=== PATIENT | male | born 1970 | race Caucasian/White ===

== ENCOUNTER 2016-07-02 22:48 | Observation (INO) | payer MEDICARE, MEDICAID ==
[2016-07-03] MEDS ORDERED: MVI, Adult with Vitamin K 10 ML, Thiamine 100 MG, Folic Acid 1 MG, Magnesium Sulfate 3 ... IV SCH ×5 (00:15)
--- NOTE | 2016-07-03 03:20 | EDM.PDOC ---
ED HPI GENERAL MEDICAL PROBLEM - General Chief Complaint: Drug or Alcohol Abuse Stated Complaint: [facility] Time Seen by Provider: 07/03/16 00:01 Source of Information: Reports: EMS, Police History Limitations: Reports: Intoxication - History of Present Illness INITIAL COMMENTS - FREE TEXT/NARRATIVE: History of present illness: [45-year-old male is brought in in a state of deep intoxication. He apparently was in a motel and discovered there and brought in by a law enforcement or ambulance. At one point upon arrival here her upon giving him painful stimulation he arouses and asked if he was in [place]. He's not been here before so we do not have much history on him.] Review of systems: As per history of present illness and below otherwise all systems reviewed and negative. Past medical history: As per history of present illness and as reviewed below otherwise noncontributory. Surgical history: As per history of present illness and as reviewed below otherwise noncontributory. Social history: No reported history of drug or alcohol abuse. Family history: As per history of present illness and as reviewed below otherwise noncontributory. Physical exam: HEENT: Atraumatic, normocephalic, pupils reactive, negative for conjunctival pallor or scleral icterus, mucous membranes moist, throat dry, neck supple, nontender, trachea midline. Lungs: Clear to auscultation, breath sounds equal bilaterally, chest was tender on palpation of the left upper chest Heart: S1S2, regular, negative for clicks, rubs, or JVD. Abdomen: Soft, nondistended, nontender. Negative for masses or hepatosplenomegaly. Negative for costovertebral tenderness. Pelvis: Stable nontender. Genitourinary: Deferred. Rectal: Deferred. Extremities: Atraumatic, negative for cords or calf pain. Neurovascular unremarkable. Neuro: Patient is arousable by voice or painful stimuli but then quickly falls back asleep Diagnostics: [Head CT did not demonstrate any intracranial problems or hematoma blood alcohol level is 271 urine drug screen is negative. CBC and complete metabolic panel were also done see those for details but nothing that required any intervention] Therapeutics: [He was given a banana bag while here.] Impression: [Alcohol intoxication] Plan: [Patient has been here 4 hours and is not arousing we are going to admit him and continue to observe him and expect that he will eventually awake from his intoxicated state but if not then further investigation may need to be undertaken. He will need to be watched for DTs. Angelica is coming to admit him] Definitive disposition and diagnosis as appropriate pending reevaluation and review of above. - Related Data Allergies Allergy/AdvReac Type Severity Reaction Status Date / Time nickel Allergy Rash Verified 07/02/16 23:12 trazodone Allergy Priapism Verified 07/02/16 23:11 Home Meds: Home Meds Acetaminophen 500 mg PO ASDIRECTED 07/02/16 [History] Aspirin [Santos Chewable] 81 mg PO DAILY 07/02/16 [History] Cholecalciferol (Vitamin D3) [Vitamin D3] 1,000 unit PO DAILY 07/02/16 [History] FLUoxetine [PROzac] 20 mg PO DAILY 07/02/16 [History] Insulin Aspart [NovoLOG] 10 unit SQ TIDMEALS 07/02/16 [History] Insulin Glarg,Human.Rec.Analog [LantUS Solostar] 15 unit SUBCUT BEDTIME [History] Lisinopril [Prinivil] 2.5 mg PO DAILY 07/02/16 [History] Multivitamin [One Daily Multivitamin] 1 each PO DAILY 07/02/16 [History] Naproxen Sodium [Aleve] 220 mg PO ASDIRECTED 07/02/16 [History] Zolpidem [Ambien] 10 mg PO BEDTIME PRN 07/02/16 [History] atorvaSTATin Calcium [Atorvastatin Calcium] 20 mg PO BEDTIME 07/02/16 [History] Past Medical History Cardiovascular History: Reports: Other (See Below) Other Cardiovascular History: Valve problems. Gastrointestinal History: Reports: Other (See Below) Other Gastrointestinal History: unknown of history Genitourinary History: Reports: Other (See Below) Other Genitourinary History: unknown of history Musculoskeletal History: Reports: Other (See Below) Other Musculoskeletal History: Unknown history Neurological History: Reports: Other (See Below) Other Neuro History: unknown of history Psychiatric History: Reports: Addiction, Other (See Below) Other Psychiatric History: ETOH Abuse Endocrine/Metabolic History: Reports: Diabetes, Type II, Other (See Below) Other Endocrine/Metabolic History: On insulin Hematologic History: Reports: Other (See Below) Other Hematologic History: unknown of history Immunologic History: Reports: Other (See Below) Other Immunologic History: unknown of history Oncologic (Cancer) History: Reports: Other (See Below) Other Oncologic History: unknown of history Dermatologic History: Reports: Other (See Below) - Infectious Disease History Infectious Disease History: Reports: Chicken Pox - Past Surgical History HEENT Surgical History: Reports: Tonsillectomy Social & Family History - Family History Family Medical History: Unobtainable - Tobacco Use Smoking Status *Q: Current Every Day Smoker Years of Tobacco use: 30 Packs/Tins Daily: 0.5 Second Hand Smoke Exposure: No - Caffeine Use Caffeine Use: Reports: Energy Drinks - Alcohol Use Days Per Week of Alcohol Use: 7 Number of Drinks Per Day: 12 Total Drinks Per Week: 84 - Recreational Drug Use Recreational Drug Use: Yes Recreational Drug Type: Reports: Other (see below) Other Recreational Drug Type: unknown of history ED ROS GENERAL - Review of Systems Review Of Systems: ROS reveals no pertinent complaints other than HPI. - Physical Exam Exam: See Below Course - Vital Signs Last Recorded V/S: Last Vital Signs Temp 37 C 07/03/16 01:05 Pulse 90 07/03/16 01:55 Resp 14 07/03/16 01:55 BP 117/40 L 07/03/16 01:55 Pulse Ox 94 L 07/03/16 01:55 - Orders/Labs/Meds Orders: Active Orders 24 hr Category Date Time Status Chest 1V Frontal [CR] Stat Exams 07/03/16 00:03 Taken Head wo Cont [CT] Stat Exams 07/03/16 00:06 Taken MVI, Adult with Vitamin K [Infuvite Adult] 10 ml Med 07/03/16 00:15 Active Thiamine [Vitamin B-1] 100 mg Folic Acid 1 mg Magnesium Sulfate [Magnesium Sulfate 50%] 3 gm Sodium Chloride 0.9% [Normal Saline] 1,000 ml IV ASDIRECTED Medication Orders Multivitamins/Minerals 10 ml/Thiamine HCl 100 mg/ Folic Acid 1 mg/ Magnesium Sulfate 3 gm/ Sodium Chloride 1,017.2 mls @ 500 mls/hr IV ASDIRECTED STEVEN Last Admin: 07/03/16 00:36 Dose: 500 mls/hr Labs: Laboratory Tests 07/03/16 07/03/16 07/03/16 Range/Units 00:13 00:13 00:22 WBC 6.5 (4.5-11.0) K/uL RBC 4.25 L (4.30-5.90) M/uL Hgb 13.4 (12.0-15.0) g/dL Hct 38.4 L (40.0-54.0) % MCV 90 (80-98) fL MCH 32 H (27-31) pg MCHC 35 (32-36) % Plt Count 210 (150-400) K/uL Neut % (Auto) 46 (36-66) % Lymph % (Auto) 39 (24-44) % [place] % (Auto) 9 H (2-6) % Eos % (Auto) 4 (2-4) % Baso % (Auto) 1 (0-1) % PT (9.5-12.0) sec INR (0.80-1.20) Sodium (140-148) mmol/L Potassium (3.6-5.2) mmol/L Chloride (100-108) mmol/L Carbon Dioxide (21-32) mmol/L Anion Gap (5.0-14.0) mmol/L BUN (7-18) mg/dL Creatinine (0.8-1.3) mg/dL Est Cr Clr Drug Dosing mL/min Estimated GFR (MDRD) (>60) Glucose (74-106) mg/dL Calcium (8.5-10.1) mg/dL Total Bilirubin (0.2-1.0) mg/dL AST (15-37) U/L ALT (12-78) U/L Alkaline Phosphatase (46-116) U/L Creatine Kinase (39-308) U/L Troponin I (0.000-0.056) ng/mL Total Protein (6.4-8.2) g/dL Albumin (3.4-5.0) g/dL Globulin (2.3-3.5) g/dL Albumin/Globulin Ratio (1.2-2.2) Lipase (73-393) U/L Urine Color Yellow Urine Appearance Clear Urine pH 5.0 (4.5-8.0) Ur Specific [place] 1.005 L (1.008-1.030) Urine Protein Negative (NEGATIVE) mg/dL Urine Glucose (UA) 1000 H (NEGATIVE) mg/dL Urine Ketones Negative (NEGATIVE) mg/dL Urine Occult Blood Negative (NEGATIVE) Urine Nitrite Negative (NEGAITVE) Urine Bilirubin Negative (NEGATIVE) Urine Urobilinogen Normal (NORMAL) mg/dL Ur Leukocyte Esterase Negative (NEGATIVE) Urine RBC 0-5 (0-5) Urine WBC 0-5 (0-5) Ur Epithelial Cells Not seen Amorphous Sediment Not seen Urine Bacteria Not seen Urine Mucus Not seen Urine Opiates Screen Negative (NEGATIVE) Ur Oxycodone Screen Negative (NEGATIVE) Urine Methadone Screen Negative (NEGATIVE) Ur Propoxyphene Screen Negative (NEGATIVE) Ur Barbiturates Screen Negative (NEGATIVE) Ur Tricyclics Screen Negative (NEGATIVE) Ur Phencyclidine Scrn Negative (NEGATIVE) Ur Amphetamine Screen Negative (NEGATIVE) U Methamphetamines Scrn Negative (NEGATIVE) Urine MDMA Screen Negative (NEGATIVE) U Benzodiazepines Scrn Negative (NEGATIVE) U Cocaine Metab Screen Negative (NEGATIVE) U Marijuana (THC) Screen Negative (NEGATIVE) Ethyl Alcohol mg/dL 07/03/16 07/03/16 07/03/16 Range/Units 00:22 00:22 00:22 WBC (4.5-11.0) K/uL RBC (4.30-5.90) M/uL Hgb (12.0-15.0) g/dL Hct (40.0-54.0) % MCV (80-98) fL MCH (27-31) pg MCHC (32-36) % Plt Count (150-400) K/uL Neut % (Auto) (36-66) % Lymph % (Auto) (24-44) % [place] % (Auto) (2-6) % Eos % (Auto) (2-4) % Baso % (Auto) (0-1) % PT 10.3 (9.5-12.0) sec INR 0.97 (0.80-1.20) Sodium 142 (140-148) mmol/L Potassium 4.2 (3.6-5.2) mmol/L Chloride 105 (100-108) mmol/L Carbon Dioxide 25 (21-32) mmol/L Anion Gap 11.6 (5.0-14.0) mmol/L BUN 5 L (7-18) mg/dL Creatinine 0.9 (0.8-1.3) mg/dL Est Cr Clr Drug Dosing 98.17 mL/min Estimated GFR (MDRD) > 60 (>60) Glucose 305 H (74-106) mg/dL Calcium 8.2 L (8.5-10.1) mg/dL Total Bilirubin 0.2 (0.2-1.0) mg/dL AST 84 H (15-37) U/L ALT 156 H (12-78) U/L Alkaline Phosphatase 74 (46-116) U/L Creatine Kinase 218 (39-308) U/L Troponin I < 0.017 (0.000-0.056) ng/mL Total Protein 7.5 (6.4-8.2) g/dL Albumin 3.7 (3.4-5.0) g/dL Globulin 3.8 H (2.3-3.5) g/dL Albumin/Globulin Ratio 1.0 L (1.2-2.2) Lipase 106 (73-393) U/L Urine Color Urine Appearance Urine pH (4.5-8.0) Ur Specific [place] (1.008-1.030) Urine Protein (NEGATIVE) mg/dL Urine Glucose (UA) (NEGATIVE) mg/dL Urine Ketones (NEGATIVE) mg/dL Urine Occult Blood (NEGATIVE) Urine Nitrite (NEGAITVE) Urine Bilirubin (NEGATIVE) Urine Urobilinogen (NORMAL) mg/dL Ur Leukocyte Esterase (NEGATIVE) Urine RBC (0-5) Urine WBC (0-5) Ur Epithelial Cells Amorphous Sediment Urine Bacteria Urine Mucus Urine Opiates Screen (NEGATIVE) Ur Oxycodone Screen (NEGATIVE) Urine Methadone Screen (NEGATIVE) Ur Propoxyphene Screen (NEGATIVE) Ur Barbiturates Screen (NEGATIVE) Ur Tricyclics Screen (NEGATIVE) Ur Phencyclidine Scrn (NEGATIVE) Ur Amphetamine Screen (NEGATIVE) U Methamphetamines Scrn (NEGATIVE) Urine MDMA Screen (NEGATIVE) U Benzodiazepines Scrn (NEGATIVE) U Cocaine Metab Screen (NEGATIVE) U Marijuana (THC) Screen (NEGATIVE) Ethyl Alcohol mg/dL 07/03/16 Range/Units 00:22 WBC (4.5-11.0) K/uL RBC (4.30-5.90) M/uL Hgb (12.0-15.0) g/dL Hct (40.0-54.0) % MCV (80-98) fL MCH (27-31) pg MCHC (32-36) % Plt Count (150-400) K/uL Neut % (Auto) (36-66) % Lymph % (Auto) (24-44) % [place] % (Auto) (2-6) % Eos % (Auto) (2-4) % Baso % (Auto) (0-1) % PT (9.5-12.0) sec INR (0.80-1.20) Sodium (140-148) mmol/L Potassium (3.6-5.2) mmol/L Chloride (100-108) mmol/L Carbon Dioxide (21-32) mmol/L Anion Gap (5.0-14.0) mmol/L BUN (7-18) mg/dL Creatinine (0.8-1.3) mg/dL Est Cr Clr Drug Dosing mL/min Estimated GFR (MDRD) (>60) Glucose (74-106) mg/dL Calcium (8.5-10.1) mg/dL Total Bilirubin (0.2-1.0) mg/dL AST (15-37) U/L ALT (12-78) U/L Alkaline Phosphatase (46-116) U/L Creatine Kinase (39-308) U/L Troponin I (0.000-0.056) ng/mL Total Protein (6.4-8.2) g/dL Albumin (3.4-5.0) g/dL Globulin (2.3-3.5) g/dL Albumin/Globulin Ratio (1.2-2.2) Lipase (73-393) U/L Urine Color Urine Appearance Urine pH (4.5-8.0) Ur Specific [place] (1.008-1.030) Urine Protein (NEGATIVE) mg/dL Urine Glucose (UA) (NEGATIVE) mg/dL Urine Ketones (NEGATIVE) mg/dL Urine Occult Blood (NEGATIVE) Urine Nitrite (NEGAITVE) Urine Bilirubin (NEGATIVE) Urine Urobilinogen (NORMAL) mg/dL Ur Leukocyte Esterase (NEGATIVE) Urine RBC (0-5) Urine WBC (0-5) Ur Epithelial Cells Amorphous Sediment Urine Bacteria Urine Mucus Urine Opiates Screen (NEGATIVE) Ur Oxycodone Screen (NEGATIVE) Urine Methadone Screen (NEGATIVE) Ur Propoxyphene Screen (NEGATIVE) Ur Barbiturates Screen (NEGATIVE) Ur Tricyclics Screen (NEGATIVE) Ur Phencyclidine Scrn (NEGATIVE) Ur Amphetamine Screen (NEGATIVE) U Methamphetamines Scrn (NEGATIVE) Urine MDMA Screen (NEGATIVE) U Benzodiazepines Scrn (NEGATIVE) U Cocaine Metab Screen (NEGATIVE) U Marijuana (THC) Screen (NEGATIVE) Ethyl Alcohol 271 mg/dL Meds: Medications Generic Name Dose Route Start Last Admin Trade Name Danilo PRN Reason Stop Dose Admin Multivitamins/Minerals 10 ml/ 1,017.2 mls @ 500 mls/hr 07/03/16 00:15 00:36 Thiamine HCl 100 mg/ Folic IV 500 mls/hr Acid 1 mg/ Magnesium Sulfate 3 ASDIRECTED STEVEN Administration gm/ Sodium Chloride Departure - Departure Time of Disposition: 03:20 Disposition: Admitted As Inpatient 64 Condition: fair Clinical Impression: Alcohol intoxication Qualifiers: Complication of substance-induced condition: uncomplicated Qualified Code(s): F10.920 - Alcohol use, unspecified with intoxication, uncomplicated - Discharge Information Forms: ED Department Discharge - My Orders Last 24 Hours: My Active Orders 07/03/16 00:03 Chest 1V Frontal [CR] Stat 07/03/16 00:06 Head wo Cont [CT] Stat 07/03/16 00:15 MVI, Adult with Vitamin K [Infuvite Adult] 10 ml Thiamine [Vitamin B-1] 100 mg Folic Acid 1 mg Magnesium Sulfate [Magnesium Sulfate 50%] 3 gm Sodium Chloride 0.9% [Normal Saline] 1,000 ml IV ASDIRECTED - Assessment/Plan Last 24 Hours: My Active Orders 07/03/16 00:03 Chest 1V Frontal [CR] Stat 07/03/16 00:06 Head wo Cont [CT] Stat 07/03/16 00:15 MVI, Adult with Vitamin K [Infuvite Adult] 10 ml Thiamine [Vitamin B-1] 100 mg Folic Acid 1 mg Magnesium Sulfate [Magnesium Sulfate 50%] 3 gm Sodium Chloride 0.9% [Normal Saline] 1,000 ml IV ASDIRECTED
--- NOTE | 2016-07-03 03:44 | PCM.HP ---
H&P History of Present Illness - General Date of Service: 07/02/16 Admit Problem/Dx: Admission Diagnosis/Problem Admission Diagnosis/Problem Alcohol intoxication Source of Information: EMS Notes Reviewed, Provider, RN History Limitations: Reports: Altered Mental Status, Intoxication, Uncooperative - History of Present Illness Initial Comments - Free Text/Narative: History of present illness: [45-year-old male is brought in in a state of deep intoxication. He apparently was in a motel and discovered there and brought in by a law enforcement or ambulance. At one point upon arrival here her upon giving him painful stimulation he arouses and asked if he was in [place]. He's not been here before so we do not have much history on him.] Review of systems: As per history of present illness and below otherwise all systems reviewed and negative. Past medical history: As per history of present illness and as reviewed below otherwise noncontributory. Surgical history: As per history of present illness and as reviewed below otherwise noncontributory. Social history: No reported history of drug or alcohol abuse. Family history: As per history of present illness and as reviewed below otherwise noncontributory. Diagnostics: [Head CT did not demonstrate any intracranial problems or hematoma, blood alcohol level is 271 urine drug screen is negative. CBC and complete metabolic panel were also done see those for details but nothing that required any intervention] Therapeutics: [He was given a banana bag while here.] Impression: [Alcohol intoxication] Plan: [Patient has been here 4 hours and is not arousing we are going to admit him and continue to observe him and expect that he will eventually awake from his intoxicated state but if not then further investigation may need to be undertaken. He will need to be watched for DTs. Angelica is coming to admit him] Definitive disposition and diagnosis as appropriate pending reevaluation and review of above. Onset of Symptoms: Reports: Unknown/Unsure Location: Reports: Generalized Improves with: Reports: None Worsens with: Reports: None Associated Symptoms: Reports: No Other Symptoms - Related Data Allergies/Adverse Reactions: Allergies Allergy/AdvReac Type Severity Reaction Status Date / Time nickel Allergy Rash Verified 07/02/16 23:12 trazodone Allergy Priapism Verified 07/02/16 23:11 Home Medications: Home Meds Acetaminophen 500 mg PO ASDIRECTED 07/02/16 [History] Aspirin [Santos Chewable] 81 mg PO DAILY 07/02/16 [History] Cholecalciferol (Vitamin D3) [Vitamin D3] 1,000 unit PO DAILY 07/02/16 [History] FLUoxetine [PROzac] 20 mg PO DAILY 07/02/16 [History] Insulin Aspart [NovoLOG] 10 unit SQ TIDMEALS 07/02/16 [History] Insulin Glarg,Human.Rec.Analog [LantUS Solostar] 15 unit SUBCUT BEDTIME [History] Lisinopril [Prinivil] 2.5 mg PO DAILY 07/02/16 [History] Multivitamin [One Daily Multivitamin] 1 each PO DAILY 07/02/16 [History] Naproxen Sodium [Aleve] 220 mg PO ASDIRECTED 07/02/16 [History] Zolpidem [Ambien] 10 mg PO BEDTIME PRN 07/02/16 [History] atorvaSTATin Calcium [Atorvastatin Calcium] 20 mg PO BEDTIME 07/02/16 [History] Past Medical History Cardiovascular History: Reports: Other (See Below) Other Cardiovascular History: Valve problems. Gastrointestinal History: Reports: Other (See Below) Other Gastrointestinal History: unknown of history Genitourinary History: Reports: Other (See Below) Other Genitourinary History: unknown of history Musculoskeletal History: Reports: Other (See Below) Other Musculoskeletal History: Unknown history Neurological History: Reports: Other (See Below) Other Neuro History: unknown of history Psychiatric History: Reports: Addiction, Other (See Below) Other Psychiatric History: ETOH Abuse Endocrine/Metabolic History: Reports: Diabetes, Type II, Other (See Below) Other Endocrine/Metabolic History: On insulin Hematologic History: Reports: Other (See Below) Other Hematologic History: unknown of history Immunologic History: Reports: Other (See Below) Other Immunologic History: unknown of history Oncologic (Cancer) History: Reports: Other (See Below) Other Oncologic History: unknown of history Dermatologic History: Reports: Other (See Below) - Infectious Disease History Infectious Disease History: Reports: Chicken Pox - Past Surgical History HEENT Surgical History: Reports: Tonsillectomy Social & Family History - Family History Family Medical History: Unobtainable - Tobacco Use Smoking Status *Q: Current Every Day Smoker Years of Tobacco use: 30 Packs/Tins Daily: 0.5 Second Hand Smoke Exposure: No - Caffeine Use Caffeine Use: Reports: Energy Drinks - Alcohol Use Days Per Week of Alcohol Use: 7 Number of Drinks Per Day: 12 Total Drinks Per Week: 84 - Recreational Drug Use Recreational Drug Use: Yes Recreational Drug Type: Reports: Other (see below) Other Recreational Drug Type: unknown of history H&P Review of Systems - Review of Systems: Review Of Systems: Unable To Obtain General: Reports: ROS unobtainable Exam - Exam Exam: See Below - Vital Signs Vital Signs: Last Vital Signs Temp 37 C 07/03/16 01:05 Pulse 90 07/03/16 01:55 Resp 14 07/03/16 01:55 BP 117/40 L 07/03/16 01:55 Pulse Ox 94 L 07/03/16 01:55 Weight: 79.379 kg - Exam General: Other (awakes to name, startled look, then fall back to sleep) HEENT: Mucosa Moist & [place], Nares Patent, Pupils Equal Neck: Supple, Trachea Midline Lungs: Clear to Auscultation, Normal Respiratory Effort Cardiovascular: Regular Rate, Regular Rhythm, Normal S1, Normal S2 Abdomen: Normal Bowel Sounds, Soft, Other (non tender to palpation) (Male) Exam: Deferred Rectal (Males) Exam: Deferred Back Exam: Normal Inspection Extremities: Normal Inspection Peripheral Pulses: 2+: Brachial (L), Brachial (R), Dorsalis Pedis (L), Dorsalis Pedis (R) Skin: Warm, Dry, Intact Neurological: Strength Equal Bilateral Psychiatric: Other (unable to assess due to effects of alcohol.) - Patient Data Lab Results last 24 hrs: Laboratory Results - last 24 hr 07/03/16 07/03/16 07/03/16 Range/Units 00:13 00:13 00:22 WBC 6.5 (4.5-11.0) K/uL RBC 4.25 L (4.30-5.90) M/uL Hgb 13.4 (12.0-15.0) g/dL Hct 38.4 L (40.0-54.0) % MCV 90 (80-98) fL MCH 32 H (27-31) pg MCHC 35 (32-36) % Plt Count 210 (150-400) K/uL Neut % (Auto) 46 (36-66) % Lymph % (Auto) 39 (24-44) % Mercer % (Auto) 9 H (2-6) % Eos % (Auto) 4 (2-4) % Baso % (Auto) 1 (0-1) % PT (9.5-12.0) sec INR (0.80-1.20) Sodium (140-148) mmol/L Potassium (3.6-5.2) mmol/L Chloride (100-108) mmol/L Carbon Dioxide (21-32) mmol/L Anion Gap (5.0-14.0) mmol/L BUN (7-18) mg/dL Creatinine (0.8-1.3) mg/dL Est Cr Clr Drug Dosing mL/min Estimated GFR (MDRD) (>60) Glucose (74-106) mg/dL Calcium (8.5-10.1) mg/dL Total Bilirubin (0.2-1.0) mg/dL AST (15-37) U/L ALT (12-78) U/L Alkaline Phosphatase (46-116) U/L Creatine Kinase (39-308) U/L Troponin I (0.000-0.056) ng/mL Total Protein (6.4-8.2) g/dL Albumin (3.4-5.0) g/dL Globulin (2.3-3.5) g/dL Albumin/Globulin Ratio (1.2-2.2) Lipase (73-393) U/L Urine Color Yellow Urine Appearance Clear Urine pH 5.0 (4.5-8.0) Ur Specific [place] 1.005 L (1.008-1.030) Urine Protein Negative (NEGATIVE) mg/dL Urine Glucose (UA) 1000 H (NEGATIVE) mg/dL Urine Ketones Negative (NEGATIVE) mg/dL Urine Occult Blood Negative (NEGATIVE) Urine Nitrite Negative (NEGAITVE) Urine Bilirubin Negative (NEGATIVE) Urine Urobilinogen Normal (NORMAL) mg/dL Ur Leukocyte Esterase Negative (NEGATIVE) Urine RBC 0-5 (0-5) Urine WBC 0-5 (0-5) Ur Epithelial Cells Not seen Amorphous Sediment Not seen Urine Bacteria Not seen Urine Mucus Not seen Urine Opiates Screen Negative (NEGATIVE) Ur Oxycodone Screen Negative (NEGATIVE) Urine Methadone Screen Negative (NEGATIVE) Ur Propoxyphene Screen Negative (NEGATIVE) Ur Barbiturates Screen Negative (NEGATIVE) Ur Tricyclics Screen Negative (NEGATIVE) Ur Phencyclidine Scrn Negative (NEGATIVE) Ur Amphetamine Screen Negative (NEGATIVE) U Methamphetamines Scrn Negative (NEGATIVE) Urine MDMA Screen Negative (NEGATIVE) U Benzodiazepines Scrn Negative (NEGATIVE) U Cocaine Metab Screen Negative (NEGATIVE) U Marijuana (THC) Screen Negative (NEGATIVE) Ethyl Alcohol mg/dL 07/03/16 07/03/16 07/03/16 Range/Units 00:22 00:22 00:22 WBC (4.5-11.0) K/uL RBC (4.30-5.90) M/uL Hgb (12.0-15.0) g/dL Hct (40.0-54.0) % MCV (80-98) fL MCH (27-31) pg MCHC (32-36) % Plt Count (150-400) K/uL Neut % (Auto) (36-66) % Lymph % (Auto) (24-44) % Mercer % (Auto) (2-6) % Eos % (Auto) (2-4) % Baso % (Auto) (0-1) % PT 10.3 (9.5-12.0) sec INR 0.97 (0.80-1.20) Sodium 142 (140-148) mmol/L Potassium 4.2 (3.6-5.2) mmol/L Chloride 105 (100-108) mmol/L Carbon Dioxide 25 (21-32) mmol/L Anion Gap 11.6 (5.0-14.0) mmol/L BUN 5 L (7-18) mg/dL Creatinine 0.9 (0.8-1.3) mg/dL Est Cr Clr Drug Dosing 98.17 mL/min Estimated GFR (MDRD) > 60 (>60) Glucose 305 H (74-106) mg/dL Calcium 8.2 L (8.5-10.1) mg/dL Total Bilirubin 0.2 (0.2-1.0) mg/dL AST 84 H (15-37) U/L ALT 156 H (12-78) U/L Alkaline Phosphatase 74 (46-116) U/L Creatine Kinase 218 (39-308) U/L Troponin I < 0.017 (0.000-0.056) ng/mL Total Protein 7.5 (6.4-8.2) g/dL Albumin 3.7 (3.4-5.0) g/dL Globulin 3.8 H (2.3-3.5) g/dL Albumin/Globulin Ratio 1.0 L (1.2-2.2) Lipase 106 (73-393) U/L Urine Color Urine Appearance Urine pH (4.5-8.0) Ur Specific [place] (1.008-1.030) Urine Protein (NEGATIVE) mg/dL Urine Glucose (UA) (NEGATIVE) mg/dL Urine Ketones (NEGATIVE) mg/dL Urine Occult Blood (NEGATIVE) Urine Nitrite (NEGAITVE) Urine Bilirubin (NEGATIVE) Urine Urobilinogen (NORMAL) mg/dL Ur Leukocyte Esterase (NEGATIVE) Urine RBC (0-5) Urine WBC (0-5) Ur Epithelial Cells Amorphous Sediment Urine Bacteria Urine Mucus Urine Opiates Screen (NEGATIVE) Ur Oxycodone Screen (NEGATIVE) Urine Methadone Screen (NEGATIVE) Ur Propoxyphene Screen (NEGATIVE) Ur Barbiturates Screen (NEGATIVE) Ur Tricyclics Screen (NEGATIVE) Ur Phencyclidine Scrn (NEGATIVE) Ur Amphetamine Screen (NEGATIVE) U Methamphetamines Scrn (NEGATIVE) Urine MDMA Screen (NEGATIVE) U Benzodiazepines Scrn (NEGATIVE) U Cocaine Metab Screen (NEGATIVE) U Marijuana (THC) Screen (NEGATIVE) Ethyl Alcohol mg/dL 07/03/16 Range/Units 00:22 WBC (4.5-11.0) K/uL RBC (4.30-5.90) M/uL Hgb (12.0-15.0) g/dL Hct (40.0-54.0) % MCV (80-98) fL MCH (27-31) pg MCHC (32-36) % Plt Count (150-400) K/uL Neut % (Auto) (36-66) % Lymph % (Auto) (24-44) % Mercer % (Auto) (2-6) % Eos % (Auto) (2-4) % Baso % (Auto) (0-1) % PT (9.5-12.0) sec INR (0.80-1.20) Sodium (140-148) mmol/L Potassium (3.6-5.2) mmol/L Chloride (100-108) mmol/L Carbon Dioxide (21-32) mmol/L Anion Gap (5.0-14.0) mmol/L BUN (7-18) mg/dL Creatinine (0.8-1.3) mg/dL Est Cr Clr Drug Dosing mL/min Estimated GFR (MDRD) (>60) Glucose (74-106) mg/dL Calcium (8.5-10.1) mg/dL Total Bilirubin (0.2-1.0) mg/dL AST (15-37) U/L ALT (12-78) U/L Alkaline Phosphatase (46-116) U/L Creatine Kinase (39-308) U/L Troponin I (0.000-0.056) ng/mL Total Protein (6.4-8.2) g/dL Albumin (3.4-5.0) g/dL Globulin (2.3-3.5) g/dL Albumin/Globulin Ratio (1.2-2.2) Lipase (73-393) U/L Urine Color Urine Appearance Urine pH (4.5-8.0) Ur Specific [place] (1.008-1.030) Urine Protein (NEGATIVE) mg/dL Urine Glucose (UA) (NEGATIVE) mg/dL Urine Ketones (NEGATIVE) mg/dL Urine Occult Blood (NEGATIVE) Urine Nitrite (NEGAITVE) Urine Bilirubin (NEGATIVE) Urine Urobilinogen (NORMAL) mg/dL Ur Leukocyte Esterase (NEGATIVE) Urine RBC (0-5) Urine WBC (0-5) Ur Epithelial Cells Amorphous Sediment Urine Bacteria Urine Mucus Urine Opiates Screen (NEGATIVE) Ur Oxycodone Screen (NEGATIVE) Urine Methadone Screen (NEGATIVE) Ur Propoxyphene Screen (NEGATIVE) Ur Barbiturates Screen (NEGATIVE) Ur Tricyclics Screen (NEGATIVE) Ur Phencyclidine Scrn (NEGATIVE) Ur Amphetamine Screen (NEGATIVE) U Methamphetamines Scrn (NEGATIVE) Urine MDMA Screen (NEGATIVE) U Benzodiazepines Scrn (NEGATIVE) U Cocaine Metab Screen (NEGATIVE) U Marijuana (THC) Screen (NEGATIVE) Ethyl Alcohol 271 mg/dL Result Diagrams: 07/03/16 00:22 07/03/16 00:22 *Q Meaningful Use (ADM) - VTE *Q VTE Criteria *Q: - Stroke *Q Stroke Criteria *Q: - AMI *Q AMI Criteria *Q: - Problem List (1) Diabetes type 2, uncontrolled SNOMED Code(s): 25453469, 050872693 ICD Code: E11.65 - TYPE 2 DIABETES MELLITUS WITH HYPERGLYCEMIA Status: Acute Priority: High Current Visit: Yes Qualifiers: Diabetes mellitus complication status: with hyperglycemia Diabetes mellitus long-term insulin use: unspecified long-term insulin use status Qualified Code(s): E11.65 - Type 2 diabetes mellitus with hyperglycemia (2) Alcohol intoxication SNOMED Code(s): 26758643 ICD Code: F10.929 - ALCOHOL USE, UNSPECIFIED WITH INTOXICATION, UNSPECIFIED Status: Acute Priority: High Current Visit: Yes Qualifiers: Complication of substance-induced condition: uncomplicated Qualified Code(s ): F10.920 - Alcohol use, unspecified with intoxication, uncomplicated Problem List Initiated/Reviewed/Updated: Yes Orders Last 24hrs: Active Orders 24 hr Category Date Time Status Patient Status Manage Transfer [TRANSFER] Routine ADT 07/03/16 03:28 Ordered Cardiac Monitoring [RC] .As Directed Care 07/03/16 03:28 Ordered Chest 1V Frontal [CR] Stat Exams 07/03/16 00:03 Taken Head wo Cont [CT] Stat Exams 07/03/16 00:06 Taken MVI, Adult with Vitamin K [Infuvite Adult] 10 ml Med 07/03/16 00:15 Active Thiamine [Vitamin B-1] 100 mg Folic Acid 1 mg Magnesium Sulfate [Magnesium Sulfate 50%] 3 gm Sodium Chloride 0.9% [Normal Saline] 1,000 ml IV ASDIRECTED Resuscitation Status Routine Resus Stat 07/03/16 03:32 Ordered Medication Orders Multivitamins/Minerals 10 ml/Thiamine HCl 100 mg/ Folic Acid 1 mg/ Magnesium Sulfate 3 gm/ Sodium Chloride 1,017.2 mls @ 500 mls/hr IV ASDIRECTED STEVEN Last Admin: 07/03/16 00:36 Dose: 500 mls/hr Assessment/Plan Comment:: ASSESSMENT / PLAN History of present illness: [45-year-old male is brought in in a state of deep intoxication. He apparently was in a motel and discovered there and brought in by a law enforcement or ambulance. At one point upon arrival here her upon giving him painful stimulation he arouses and asked if he was in [place]. He's not been here before so we do not have much history on him.niesha: [Patient has been in ER for 4 hours and is not arousing we are going to admit him and continue to observe him and expect that he will eventually awake from his intoxicated state but if not then further investigation may need to be undertaken. He will need to be watched for DTs. ] Plan alcohol intoxication -Admit to ICU Med Overflow for further monitoring -Telemetry -Oxygen per nasal cannula prn -IV fluids for rehydration NS at 125 mL per hour -Advise to notify nurses of any chest pain or other symptoms -Order for a CIWAA protocol -And a.m. labs: CBC, BMP Diabetes type 2 -Lantus -low dose sliding scale coverage Maintenance issues -Orders home meds: -Nutrition: Regular diet -Felder catheter not indicated at this time -DVT: ambulate -GI Prophalaxis; Protonix 40mg daily CODE STATUS: Full Admission status: Admit to Observation -I expect this patient to stay less than 24 hours, not to exceed 96 hours for evaluation and management of this problem. Disposition; home , may need to consider [facility] Primary care provider: unknown
[2016-07-03] MEDS ORDERED: Pantoprazole 40 MG Vial IVPUSH SCH ×2 (04:37→17:00)
[2016-07-03] MEDS ORDERED: oxyCODONE 5 MG Tab PO PRN (04:37)
[2016-07-03] MEDS ORDERED: LORazepam 2 MG/ML MDV IV PRN (04:37)
[2016-07-03] MEDS ORDERED: Docusate Sodium 100 MG Cap PO PRN (04:37)
[2016-07-03] MEDS ORDERED: Insulin Aspart 100 Units/ML 3 ML Pen SUBCUT SCH ×2 (04:37→08:00)
[2016-07-03] MEDS ORDERED: Albuterol 0.083% 2.5 MG/3 ML Neb Soln NEB PRN (04:37)
[2016-07-03] MEDS ORDERED: Sodium Chloride 0.9% 1,000 ML IV SCH (04:37)
[2016-07-03] MEDS ORDERED: Acetaminophen 325 MG Tab PO PRN (04:37)
[2016-07-03] MEDS ORDERED: Zolpidem 5 MG Tab PO PRN (04:37)
[2016-07-03] MEDS ORDERED: Ondansetron 4 MG Tab.DIS PO PRN (04:37)
[2016-07-03 08:38] VITALS: BP 123/89
--- NOTE | 2016-07-03 08:41 | CR ---
Chest 1V Frontal HISTORY: left chest pain COMPARISON: None FINDINGS: Portable chest, 0029 hours. Lungs appear clear and normally aerated. Cardiomediastinal silhouette is within normal limits. No va scular redistribution or pleural fluid can be seen. Bony structures and soft tissues are unremarkabl e. IMPRESSION: No acute chest abnormality identified.
[2016-07-03] MEDS ORDERED: FLUoxetine 20 MG Cap PO SCH (09:00)
[2016-07-03] MEDS ORDERED: Lisinopril 2.5 MG Tab PO SCH (09:00)
--- NOTE | 2016-07-03 09:36 | PCM.DCSUM1 ---
Discharge Summary - Hospital Course Brief History: This patient is a 45-year-old gentleman who was brought into the emergency department by law-enforcement because of agitation related to alcohol intoxication and drug use. - Discharge Data Discharge Date: 07/03/16 Discharge Disposition: Home, Self-Care 01 Condition: Fair - Discharge Diagnosis/Problem(s) (1) Agitation SNOMED Code(s): 85537672 ICD Code: R45.1 - RESTLESSNESS AND AGITATION Status: Acute Current Visit : Yes (2) Alcohol intoxication SNOMED Code(s): 78603211 ICD Code: F10.929 - ALCOHOL USE, UNSPECIFIED WITH INTOXICATION, UNSPECIFIED Status: Acute Priority: High Current Visit: Yes Qualifiers: Complication of substance-induced condition: uncomplicated Qualified Code(s ): F10.920 - Alcohol use, unspecified with intoxication, uncomplicated (3) Diabetes type 2, uncontrolled SNOMED Code(s): 04631599, 792811301 ICD Code: E11.65 - TYPE 2 DIABETES MELLITUS WITH HYPERGLYCEMIA Status: Acute Priority: High Current Visit: Yes Qualifiers: Diabetes mellitus complication status: with hyperglycemia 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 He became very agitated and was brought into the emergency department by law-enforcement for further evaluation and management. His alcohol level was 271 urine drug screen was otherwise negative. He was given IV fluids and admitted to the intensive care unit for further observation and management. Glucose level was noted to be significantly elevated 300 he does have a history of poorly controlled type 2 diabetes mellitus. On the morning of discharge he was alert and oriented. He is planning on continuing sobriety and does have alcohol assessment pending within the next week. He has been through treatment many times in the past but is interested in pursuing further treatment and followup in . Activity will be as tolerated and he will resume his usual diet. Followup appointment will be scheduled with his primary care provider within one week. - Patient Instructions Diet: Diabetic Diet Activity: As Tolerated Other/Special Instructions: Schedule followup appointment with primary care provider within one week - Discharge Plan Home Medications: Home Meds Acetaminophen 500 mg PO ASDIRECTED 07/02/16 [History] Aspirin [Santos Chewable Aspirin] 81 mg PO DAILY 07/02/16 [History] Cholecalciferol (Vitamin D3) [Vitamin D3] 1,000 unit PO DAILY 07/02/16 [History] FLUoxetine [PROzac] 20 mg PO DAILY 07/02/16 [History] Insulin Aspart [NovoLOG] 10 unit SQ TIDMEALS 07/02/16 [History] Insulin Glarg,Human.Rec.Analog [Lantus Solostar] 15 unit SUBCUT BEDTIME [History] Lisinopril [Prinivil] 2.5 mg PO DAILY 07/02/16 [History] Multivitamin [One Daily Multivitamin] 1 each PO DAILY 07/02/16 [History] Naproxen Sodium [Aleve] 220 mg PO ASDIRECTED 07/02/16 [History] Zolpidem [Ambien] 10 mg PO BEDTIME PRN 07/02/16 [History] atorvaSTATin Calcium [Atorvastatin Calcium] 20 mg PO BEDTIME 07/02/16 [History] Referrals: PCP,None [Primary Care Provider] - - Patient Data Vitals - Most Recent: Last Vital Signs Temp 98.9 F 07/03/16 08:33 Pulse 88 07/03/16 08:33 Resp 20 07/03/16 08:33 BP 123/89 07/03/16 08:33 Pulse Ox 98 07/03/16 08:33 Weight - Most Recent: 175 lb Med Orders - Current: Current Medications Acetaminophen (Tylenol) 650 mg PO Q4H PRN PRN Reason: Pain (Mild 1-3)/fever Albuterol (Proventil Neb Soln) 2.5 mg NEB Q4H PRN PRN Reason: Shortness Of Breath/wheezing Docusate Sodium (Colace) 100 mg PO BID PRN PRN Reason: Constipation Fluoxetine HCl (Prozac) 20 mg PO DAILY STEVEN Sodium Chloride (Normal Saline) 1,000 mls @ 125 mls/hr IV ASDIRECTED STEVEN Insulin Aspart (Novolog) 0 unit SUBCUT ASDIRECTED STEVEN PRN Reason: Protocol Insulin Aspart (Novolog) 10 unit SUBCUT TIDMEALS STEVEN Insulin Detemir (Levemir) 15 unit SUBCUT BEDTIME STEVEN Lisinopril (Prinivil) 2.5 mg PO DAILY STEVEN Lorazepam (Ativan) 1 mg IV Q6H PRN PRN Reason: Nausea/Vomiting Last Admin: 07/03/16 05:09 Dose: 1 mg Ondansetron HCl (Zofran Odt) 4 mg PO Q6H PRN PRN Reason: Nausea able to take PO Oxycodone HCl (Oxycodone) 5 mg PO Q4H PRN PRN Reason: Pain (moderate 4-6) Pantoprazole Sodium (Protonix Iv) 40 mg IVPUSH Q12H [facility] Zolpidem Tartrate (Ambien) 5 mg PO BEDTIME PRN PRN Reason: Sleep Discontinued Medications Multivitamins/Minerals 10 ml/Thiamine HCl 100 mg/ Folic Acid 1 mg/ Magnesium Sulfate 3 gm/ Sodium Chloride 1,017.2 mls @ 500 mls/hr IV ASDIRECTED [facility] Last Admin: 07/03/16 00:36 Dose: 500 mls/hr Pantoprazole Sodium (Protonix Iv) 40 mg IVPUSH Q12H [facility] Last Admin: 07/03/16 05:09 Dose: 40 mg *Q Meaningful Use (DIS) - VTE *Q VTE Criteria *Q: - Stroke *Q Stroke Criteria *Q: - AMI *Q AMI Criteria *Q:
[2016-07-03] MEDS ORDERED: Insulin Detemir 100 Units/ML 3 ML Pen SUBCUT SCH (21:00)
== END 2016-07-03 10:03 | disposition home or self-care (01) ==
LOC: JP.ED 22:48 → JP.ICU 07-03 03:28
PROVIDERS: ADMIT Hospitalist; ATTEND Hospitalist
DX: R45.1 Restlessness and agitation (principal); F10.920 Alcohol use, unspecified with intoxication, uncomplicated; E11.65 Type 2 diabetes mellitus with hyperglycemia; Z79.82 Long term (current) use of aspirin; Z79.4 Long term (current) use of insulin; Z79.899 Other long term (current) drug therapy; Z88.8 Allergy status to other drugs, medicaments and biological substances; Z91.09 Other allergy status, other than to drugs and biological substances; Z98.890 Other specified postprocedural states; F17.210 Nicotine dependence, cigarettes, uncomplicated
CPT/HCPCS: 36415; 70450; 71010; 80053; 80305; 81001; 82550; 82962; 83690; 84484; 85025; 85610; 96365; 96366; 99285; A9270; C9113; G0480; J2060; J3411; J3475; J7040; 96375; 99219; 99284; G0378; J3490

== ENCOUNTER 2018-03-13 07:47 | Emergency (ER) | payer MEDICARE, MEDICAID ==
[2018-03-13 07:50] VITALS: BP 126/72
[2018-03-13] MEDS ORDERED: LORazepam 2 MG/ML SDV IM ONE (08:41)
--- NOTE | 2018-03-13 12:31 | EDM.PDOCBH ---
ED HPI GENERAL MEDICAL PROBLEM - General Chief Complaint: Drug or Alcohol Abuse Stated Complaint: MEDICAL [facility]IA [facility] Time Seen by Provider: 03/13/18 08:26 Source of Information: Reports: Patient, EMS History Limitations: Reports: No Limitations - History of Present Illness INITIAL COMMENTS - FREE TEXT/NARRATIVE: This man arrived by EMS with some peculiar complaints. He said he ran out of test strips and he said to the EMS something about overdosing on gabapentin drinking bleach and homemade alcohol and that type of thing he told me that he thinks he either has cabin fever or problems with his diabetes. He makes his own homemade wine he said from moldy fruit he said he eats okay but it's mostly carbohydrates. He get somebody to bring him food from the food shelf one of his neighbors. He said previously had been treated with a lot of psych meds such as Haldol. He lives in a [place] the [facility]. He says he's had a lot of losses lately such as his mom and so forth he spoke of his 'expediated existential plight". He denied trying to hurt himself however. He said he needs 2 mg of Ativan right now just so he can urinate. He said he needs glucose Test strips also. He is out of food he does take insulin-dependent he had some this morning he said just prior to calling 911 this morning had Lantus and NovoLog. He said he's leaving for [place] in about 4 days he's going to take a bus. He said he checks his glucose 10-15 times per day. He denies any homicidal or suicidal ideation - Related Data Allergies Allergy/AdvReac Type Severity Reaction Status Date / Time nickel Allergy Rash Verified 03/13/18 07:50 trazodone Allergy Priapism Verified 03/13/18 07:50 Home Meds: Home Meds Acetaminophen 500 mg PO ASDIRECTED 07/02/16 [History] Aspirin [Santos Chewable Aspirin] 81 mg PO DAILY 07/02/16 [History] Cholecalciferol (Vitamin D3) [Vitamin D3] 1,000 unit PO DAILY 07/02/16 [History] FLUoxetine [PROzac] 40 mg PO DAILY 07/02/16 [History] Insulin Aspart [NovoLOG] 6 unit SQ TIDMEALS 07/02/16 [History] Insulin Glarg,Human.Rec.Analog [Lantus Solostar] 20 unit SUBCUT Q12H 07/02/16 [ History] Multivitamin [One Daily Multivitamin] 1 each PO DAILY 07/02/16 [History] atorvaSTATin Calcium [Atorvastatin Calcium] 20 mg PO BEDTIME 07/02/16 [History] Diltiazem [Cardizem] 120 mg PO TID 03/13/18 [History] Gabapentin [Neurontin] 200 mg PO BID 03/13/18 [History] Lidocaine 4% [Xylocaine 4% Top Soln] 1 applic TOP Q12H 03/13/18 [History] hydrOXYzine pamoate [Hydroxyzine Pamoate] 50 mg PO BID PRN 03/13/18 [History] Past Medical History Cardiovascular History: Reports: Other (See Below) Other Cardiovascular History: Valve problems. Gastrointestinal History: Reports: Other (See Below) Other Gastrointestinal History: unknown of history Genitourinary History: Reports: Other (See Below) Other Genitourinary History: unknown of history Musculoskeletal History: Reports: Other (See Below) Other Musculoskeletal History: Unknown history Neurological History: Reports: Other (See Below) Other Neuro History: unknown of history Psychiatric History: Reports: Addiction, Other (See Below) Other Psychiatric History: ETOH Abuse Endocrine/Metabolic History: Reports: Diabetes, Type II, Other (See Below) Other Endocrine/Metabolic History: On insulin Hematologic History: Reports: Other (See Below) Other Hematologic History: unknown of history Immunologic History: Reports: Other (See Below) Other Immunologic History: unknown of history Oncologic (Cancer) History: Reports: Other (See Below) Other Oncologic History: unknown of history Dermatologic History: Reports: Other (See Below) - Infectious Disease History Infectious Disease History: Reports: Chicken Pox - Past Surgical History HEENT Surgical History: Reports: Tonsillectomy Social & Family History - Family History Family Medical History: Unobtainable - Tobacco Use Smoking Status *Q: Current Every Day Smoker Years of Tobacco use: 30 Packs/Tins Daily: 2 - Caffeine Use Caffeine Use: Reports: Energy Drinks ED ROS GENERAL - Review of Systems Review Of Systems: See Below Constitutional: Reports: No Symptoms HEENT: Reports: No Symptoms Respiratory: Reports: No Symptoms Cardiovascular: Reports: No Symptoms Endocrine: Reports: High Glucose GI/Abdominal: Reports: No Symptoms : Reports: No Symptoms Musculoskeletal: Reports: No Symptoms Skin: Reports: No Symptoms Neurological: Reports: No Symptoms Psychiatric: Reports: Anxiety Hematologic/Lymphatic: Reports: No Symptoms ED EXAM, BEHAVIORAL HEALTH - Physical Exam Exam: See Below Exam Limited By: No Limitations General Appearance: Alert (And this morning), No Apparent Distress Eye Exam: Bilateral Eye: Normal Inspection Ears: Normal External Exam Nose: Normal Inspection Throat/Mouth: Normal Inspection, Normal Oropharynx Head: Atraumatic Neck: Normal Inspection Respiratory/Chest: Lungs Clear Cardiovascular: Regular Rate, Rhythm, No Murmur GI/Abdominal: Non-Tender Extremities: Normal Inspection Neurological: Alert, Normal Mood/Affect, CN II-XII Intact, Normal Gait, Normal Reflexes, No Motor/Sensory Deficits Psychiatric: Alert, Normal Affect, Normal Mood, Oriented, Other (He gives a pretty expansive story this difficult to follow. I don't note any clearly neurotic or psychotic signs. Definitely is not suicidal or homicidal. A little bit anxious.) Skin Exam: Warm, Dry COURSE, BEHAVIORAL HEALTH COMP - Course Vital Signs: Last Vital Signs Temp 35.2 C 03/13/18 08:01 Pulse 91 03/13/18 08:01 Resp 13 03/13/18 08:01 BP 126/72 03/13/18 08:01 Pulse Ox 96 03/13/18 08:01 Orders, Labs, Meds: Active Orders 24 hr Category Date Time Status UA W/MICROSCOPIC [URIN] Urgent Lab 03/13/18 08:42 Ordered Laboratory Tests 03/13/18 03/13/18 03/13/18 Range/Units 08:42 08:42 08:43 WBC 8.7 (4.5-11.0) K/uL RBC 4.59 (4.30-5.90) M/uL Hgb 14.4 (12.0-15.0) g/dL Hct 41.1 (40.0-54.0) % MCV 90 (80-98) fL MCH 31 (27-31) pg MCHC 35 (32-36) % Plt Count 271 (150-400) K/uL Neut % (Auto) 60 (36-66) % Lymph % (Auto) 28 (24-44) % [place] % (Auto) 11 H (2-6) % Eos % (Auto) 1 L (2-4) % Baso % (Auto) 1 (0-1) % Sodium 142 (140-148) mmol/L Potassium 4.0 (3.6-5.2) mmol/L Chloride 105 (100-108) mmol/L Carbon Dioxide 24 (21-32) mmol/L Anion Gap 13.2 (5.0-14.0) mmol/L BUN 8 D (7-18) mg/dL Creatinine 1.1 (0.8-1.3) mg/dL Est Cr Clr Drug Dosing 78.59 mL/min Estimated GFR (MDRD) > 60 (>60) Glucose 96 (74-106) mg/dL Calcium 8.5 (8.5-10.1) mg/dL Total Bilirubin 0.3 (0.2-1.0) mg/dL AST 19 D (15-37) U/L ALT 43 (12-78) U/L Alkaline Phosphatase 87 (46-116) U/L Total Protein 7.9 (6.4-8.2) g/dL Albumin 3.9 (3.4-5.0) g/dL Globulin 4.0 H (2.3-3.5) g/dL Albumin/Globulin Ratio 1.0 L (1.2-2.2) Ketones Negative (NEGATIVE) Medications Discontinued Medications Generic Name Dose Route Start Last Admin Trade Name Freq PRN Reason Stop Dose Admin Lorazepam 2 mg 03/13/18 08:41 03/13/18 08:54 Ativan IM 03/13/18 08:42 2 mg ONETIME ONE Administration Re-Assessment/Re-Exam: I did give this man 2 mg of Ativan IM. He said 1 mg 1 work. He became pretty sleepy after that however but he did go ahead and eat a good breakfast. I've explained to him that we don't have any test strips we can give him and he definitely doesn't need to check his blood sugar 10 or 15 times a day. Departure - Departure Time of Disposition: 12:43 Disposition: Home, Self-Care 01 Condition: Fair Clinical Impression: Anxiety about health, Diabetes mellitus - Discharge Information Referrals: PCP,None [Primary Care Provider] - Additional Instructions: Continue all of your usual medications. Get new test strips when they are available. You don't need to check your blood sugar more than 3 or 4 times per day. If it stable just twice a day should be just fine. - My Orders Last 24 Hours: My Active Orders 03/13/18 08:42 UA W/MICROSCOPIC [URIN] Urgent - Assessment/Plan Last 24 Hours: My Active Orders 03/13/18 08:42 UA W/MICROSCOPIC [URIN] Urgent
== END 2018-03-13 13:28 | disposition home or self-care (01) ==
LOC: JP.ED 07:47
DX: F41.9 Anxiety disorder, unspecified (principal); E11.9 Type 2 diabetes mellitus without complications; F17.210 Nicotine dependence, cigarettes, uncomplicated; Z79.4 Long term (current) use of insulin; Z79.82 Long term (current) use of aspirin; Z79.899 Other long term (current) drug therapy; Z98.890 Other specified postprocedural states; Z88.8 Allergy status to other drugs, medicaments and biological substances
CPT/HCPCS: 36415; 80053; 82009; 85025; 96372; 99284; J2060; 99283

== ENCOUNTER 2018-12-15 07:40 | Day surgery (SDC) | payer MEDICARE, MEDICAID ==
[~2018-12-15 07:40] MED LIST: Sodium Chloride 0.9% 1,000 ML IV SCH
[2018-12-15] MEDS ORDERED: fentaNYL 100 MCG/2 ML SDV ONE (08:44)
[2018-12-15] MEDS ORDERED: Midazolam 1 MG/ML 2 ML SDV ONE (08:44)
[2018-12-15] MEDS ORDERED: Propofol 200 MG/20 ML SDV ONE ×2 (08:44→09:07)
[2018-12-15] MEDS ORDERED: 50% Dextrose in Water 50 ML Syringe IVPUSH ONE (09:32)
[2018-12-15 10:31] VITALS: BP 136/94; PULSE 55
--- NOTE | 2018-12-15 11:54 | OR ---
DATE OF PROCEDURE: 12/15/2018 SURGEON: Lewis Ho MD PROCEDURE: Colonoscopy. FINDINGS: 1. Transverse colon polyp, approximately 8 mm, completely removed using hot snare biopsy. 2. Diverticulosis, mild. 3. Very poor colon prep. COMPLICATION: None. READING AIDE: None. ANESTHESIA: MAC. PREPROCEDURE DIAGNOSIS: Family history of colorectal cancer. POSTOPERATIVE DIAGNOSIS: Family history of colorectal cancer. RISKS: Risks, benefits, alternatives, and limitations including, but not limited to infection, bleeding, and perforation were explained to the patient, and they wished to proceed. PROCEDURE IN DETAIL: The patient was placed in left lateral decubitus position. A digital rectal exam was performed without abnormality. The scope was introduced and advanced atraumatically to the ileocecal valve. In the transverse colon, the aforementioned polyp was identified and completely removed using hot snare. The prep would be described as very poor with large amounts of solid and liquid stools remaining. Approximately 50% luminal surface could be seen. Diverticulosis would be described as mild and limited to sigmoid colon. There were no abnormalities on retroflexion. The patient tolerated the procedure well. Of note, the patient will be counseled on poor colon prep and its ramifications. Lewis Ho MD /[id number]
== END 2018-12-15 10:30 | disposition home or self-care (01) ==
LOC: JP.SDS 07:40
PROVIDERS: ATTEND Surgery
DX: Z12.11 Encounter for screening for malignant neoplasm of colon (principal); D12.3 Benign neoplasm of transverse colon; K57.30 Diverticulosis of large intestine without perforation or abscess without bleeding; E11.9 Type 2 diabetes mellitus without complications; F17.200 Nicotine dependence, unspecified, uncomplicated; F32.9 Major depressive disorder, single episode, unspecified; Z80.0 Family history of malignant neoplasm of digestive organs
CPT/HCPCS: 45385; 82962; A4216; J2250; J2704; J3010; J7030; 88305

== ENCOUNTER 2019-07-01 03:52 | Emergency (ER) | payer MEDICARE, MEDICAID ==
[2019-07-01 04:05] VITALS: BP 143/95; PULSE 93
[2019-07-01] MEDS ORDERED: LORazepam 2 MG/ML SDV IM ONE (04:15)
--- NOTE | 2019-07-01 04:19 | EDM.PDOCBH ---
<OfficerOniel - Last Filed: 07/01/19 04:23> ED HPI GENERAL MEDICAL PROBLEM - General Chief Complaint: Drug or Alcohol Abuse Stated Complaint: MEDICAL VIA [facility] Time Seen by Provider: 07/01/19 04:09 Source of Information: Reports: Patient, RN Notes Reviewed History Limitations: Reports: No Limitations - History of Present Illness INITIAL COMMENTS - FREE TEXT/NARRATIVE: 48-year-old gentleman presents emergency department today via EMS complaint of alcohol intoxication and he would like to go to [place] he has no other complaints, states he has been consuming alcohol for the last several days general Pain Score (Numeric/FACES): 6 - Related Data Allergies Allergy/AdvReac Type Severity Reaction Status Date / Time acetaminophen [From Vicodin] Allergy Cannot Verified 07/01/19 04:04 Remember hydrocodone [From Vicodin] Allergy Cannot Verified 07/01/19 04:04 Remember nickel Allergy Rash Verified 07/01/19 04:04 trazodone Allergy Priapism Verified 07/01/19 04:04 Home Meds: Home Meds Acetaminophen 500 mg PO ASDIRECTED PRN 07/02/16 [History] Aspirin [Santos Chewable Aspirin] 81 mg PO DAILY 07/02/16 [History] FLUoxetine [PROzac] 80 mg PO DAILY 07/02/16 [History] Insulin Aspart [NovoLOG] 6 unit SQ TIDMEALS 07/02/16 [History] Insulin Glarg,Human.Rec.Analog [Lantus Solostar] 20 unit SUBCUT ACBREAKFAST [History] Multivitamin [One Daily Multivitamin] 1 each PO DAILY 07/02/16 [History] atorvaSTATin Calcium [Atorvastatin Calcium] 20 mg PO BEDTIME 07/02/16 [History] Diltiazem [Cardizem] 120 mg PO TID 03/13/18 [History] Gabapentin [Neurontin] 200 mg PO BID 03/13/18 [History] hydrOXYzine pamoate [Hydroxyzine Pamoate] 50 mg PO TID PRN 03/13/18 [History] Insulin Glarg,Human.Rec.Analog [Lantus Solostar] 10 unit SQ BEDTIME 12/13/18 [ History] polyethylene glycoL 3350 [Miralax] 17 gm PO DAILY PRN 12/13/18 [History] Past Medical History Cardiovascular History: Reports: Other (See Below) Other Cardiovascular History: Valve problems. Psychiatric History: Reports: Addiction (etoh) Endocrine/Metabolic History: Reports: Diabetes, Type II - Infectious Disease History Infectious Disease History: Reports: Chicken Pox - Past Surgical History HEENT Surgical History: Reports: Tonsillectomy Social & Family History - Family History Family Medical History: Unobtainable - Tobacco Use Smoking Status *Q: Current Every Day Smoker - Caffeine Use Caffeine Use: Reports: Energy Drinks ED ROS GENERAL - Review of Systems Review Of Systems: Unable To Obtain Reason Not Obtained: Intoxicated ED EXAM, BEHAVIORAL HEALTH - Physical Exam Exam: See Below Exam Limited By: Intoxication General Appearance: Alert, No Apparent Distress Eye Exam: Bilateral Eye: Normal Inspection Head: Atraumatic, Normocephalic Neck: Normal Inspection, Supple, Non-Tender, Full Range of Motion Respiratory/Chest: No Respiratory Distress, Lungs Clear, Normal Breath Sounds, No Accessory Muscle Use, Chest Non-Tender Cardiovascular: Regular Rate, Rhythm, No Murmur GI/Abdominal: Soft, Non-Tender COURSE, BEHAVIORAL HEALTH COMP - Course Vital Signs: Last Vital Signs Temp 36.3 C 07/01/19 04:23 Pulse 93 07/01/19 04:23 Resp 22 H 07/01/19 04:23 BP 143/95 H 07/01/19 04:23 Pulse Ox 98 07/01/19 04:23 Orders, Labs, Meds: Active Orders 24 hr Category Date Time Status GLUCOSE POC LAB TO COLLECT [POC] Stat Lab 07/01/19 08:43 Ordered LORazepam [Ativan] Med 07/01/19 08:44 Once 2 mg PO ONETIME ONE Medication Orders Lorazepam (Ativan) 2 mg PO ONETIME ONE Stop: 07/01/19 08:45 Laboratory Tests 07/01/19 07/01/19 07/01/19 Range/Units 04:51 04:55 04:55 WBC 8.3 (4.5-11.0) K/uL RBC 4.62 (4.30-5.90) M/uL Hgb 14.2 (12.0-15.0) g/dL Hct 42.3 (40.0-54.0) % MCV 92 (80-98) fL MCH 31 (27-31) pg MCHC 34 (32-36) % Plt Count 235 (150-400) K/uL Neut % (Auto) 43 (36-66) % Lymph % (Auto) 44 (24-44) % [place] % (Auto) 9 H (2-6) % Eos % (Auto) 2 (2-4) % Baso % (Auto) 1 (0-1) % Sodium 139 L (140-148) mmol/L Potassium 4.1 (3.6-5.2) mmol/L Chloride 101 (100-108) mmol/L Carbon Dioxide 31 (21-32) mmol/L Anion Gap 11.1 (5.0-14.0) mmol/L BUN 6 L (7-18) mg/dL Creatinine 0.8 (0.8-1.3) mg/dL Est Cr Clr Drug Dosing 106.88 mL/min Estimated GFR (MDRD) > 60 (>60) Glucose 199 H (74-106) mg/dL Calcium 8.0 L (8.5-10.1) mg/dL Total Bilirubin 0.3 (0.2-1.0) mg/dL AST 25 (15-37) U/L ALT 33 (12-78) U/L Alkaline Phosphatase 92 (46-116) U/L Total Protein 7.3 (6.4-8.2) g/dL Albumin 3.8 (3.4-5.0) g/dL Globulin 3.5 (2.3-3.5) g/dL Albumin/Globulin Ratio 1.1 L (1.2-2.2) Urine Color Yellow (YELLOW) Urine Appearance Clear (CLEAR) Urine pH 7.0 (5.0-8.0) Ur Specific [place] 1.015 (1.008-1.030) Urine Protein Negative (NEGATIVE) mg/dL Urine Glucose (UA) 100 H (NEGATIVE) mg/dL Urine Ketones Negative (NEGATIVE) mg/dL Urine Occult Blood Negative (NEGATIVE) Urine Nitrite Negative (NEGATIVE) Urine Bilirubin Negative (NEGATIVE) Urine Urobilinogen 0.2 (0.2-1.0) EU/dL Ur Leukocyte Esterase Negative (NEGATIVE) Urine RBC 0-5 (0-5) Urine WBC 0-5 (0-5) Ur Epithelial Cells Not seen Amorphous Sediment Not seen Urine Bacteria Few Urine Mucus Not seen Urine Opiates Screen (NEGATIVE) Ur Oxycodone Screen (NEGATIVE) Urine Methadone Screen (NEGATIVE) Ur Propoxyphene Screen (NEGATIVE) Ur Barbiturates Screen (NEGATIVE) Ur Tricyclics Screen (NEGATIVE) Ur Phencyclidine Scrn (NEGATIVE) Ur Amphetamine Screen (NEGATIVE) U Methamphetamines Scrn (NEGATIVE) Urine MDMA Screen (NEGATIVE) U Benzodiazepines Scrn (NEGATIVE) U Cocaine Metab Screen (NEGATIVE) U Marijuana (THC) Screen (NEGATIVE) Ethyl Alcohol mg/dL 07/01/19 07/01/19 Range/Units 04:55 06:58 WBC (4.5-11.0) K/uL RBC (4.30-5.90) M/uL Hgb (12.0-15.0) g/dL Hct (40.0-54.0) % MCV (80-98) fL MCH (27-31) pg MCHC (32-36) % Plt Count (150-400) K/uL Neut % (Auto) (36-66) % Lymph % (Auto) (24-44) % [place] % (Auto) (2-6) % Eos % (Auto) (2-4) % Baso % (Auto) (0-1) % Sodium (140-148) mmol/L Potassium (3.6-5.2) mmol/L Chloride (100-108) mmol/L Carbon Dioxide (21-32) mmol/L Anion Gap (5.0-14.0) mmol/L BUN (7-18) mg/dL Creatinine (0.8-1.3) mg/dL Est Cr Clr Drug Dosing mL/min Estimated GFR (MDRD) (>60) Glucose (74-106) mg/dL Calcium (8.5-10.1) mg/dL Total Bilirubin (0.2-1.0) mg/dL AST (15-37) U/L ALT (12-78) U/L Alkaline Phosphatase (46-116) U/L Total Protein (6.4-8.2) g/dL Albumin (3.4-5.0) g/dL Globulin (2.3-3.5) g/dL Albumin/Globulin Ratio (1.2-2.2) Urine Color (YELLOW) Urine Appearance (CLEAR) Urine pH (5.0-8.0) Ur Specific [place] (1.008-1.030) Urine Protein (NEGATIVE) mg/dL Urine Glucose (UA) (NEGATIVE) mg/dL Urine Ketones (NEGATIVE) mg/dL Urine Occult Blood (NEGATIVE) Urine Nitrite (NEGATIVE) Urine Bilirubin (NEGATIVE) Urine Urobilinogen (0.2-1.0) EU/dL Ur Leukocyte Esterase (NEGATIVE) Urine RBC (0-5) Urine WBC (0-5) Ur Epithelial Cells Amorphous Sediment Urine Bacteria Urine Mucus Urine Opiates Screen Negative (NEGATIVE) Ur Oxycodone Screen Negative (NEGATIVE) Urine Methadone Screen Negative (NEGATIVE) Ur Propoxyphene Screen Negative (NEGATIVE) Ur Barbiturates Screen Negative (NEGATIVE) Ur Tricyclics Screen Negative (NEGATIVE) Ur Phencyclidine Scrn Negative (NEGATIVE) Ur Amphetamine Screen Negative (NEGATIVE) U Methamphetamines Scrn Negative (NEGATIVE) Urine MDMA Screen Negative (NEGATIVE) U Benzodiazepines Scrn Negative (NEGATIVE) U Cocaine Metab Screen Negative (NEGATIVE) U Marijuana (THC) Screen Negative (NEGATIVE) Ethyl Alcohol 270 mg/dL Medications Generic Name Dose Route Start Last Admin Trade Name Freq PRN Reason Stop Dose Admin Lorazepam 2 mg 07/01/19 08:44 Ativan PO 07/01/19 08:45 ONETIME ONE Discontinued Medications Generic Name Dose Route Start Last Admin Trade Name Freq PRN Reason Stop Dose Admin Lorazepam 1 mg 07/01/19 04:15 07/01/19 04:21 Ativan IM 07/01/19 04:16 1 mg ONETIME ONE Administration Nicotine 21 mg 07/01/19 04:23 Habitrol TRDERM 07/01/19 04:24 ONETIME ONE Departure - Departure Disposition: Home, Self-Care 01 Clinical Impression: Alcohol abuse - Discharge Information Instructions: Alcohol Use Disorder Referrals: PCP,None [Primary Care Provider] - Forms: ED Department Discharge Additional Instructions: Use Ativan 2 tablets orally every 6 hours as needed for tremors, for 1 day only. Written prescription is provided. Sepsis Event Note - Focused Exam Vital Signs: Vital Signs Temp Pulse Resp BP Pulse Ox 07/01/19 04:23 36.3 C 93 22 H 143/95 H 98 07/01/19 04:02 36.3 C 93 22 H 143/95 H 98 Date Exam was Performed: 07/01/19 Time Exam was Performed: 04:23 - My Orders Last 24 Hours: My Active Orders 07/01/19 08:43 GLUCOSE POC LAB TO COLLECT [POC] Stat 07/01/19 08:44 LORazepam [Ativan] 2 mg PO ONETIME ONE - Assessment/Plan Last 24 Hours: My Active Orders 07/01/19 08:43 GLUCOSE POC LAB TO COLLECT [POC] Stat 07/01/19 08:44 LORazepam [Ativan] 2 mg PO ONETIME ONE <Roverto Pearson - Last Filed: 07/01/19 08:55> ED HPI GENERAL MEDICAL PROBLEM - General History Limitations: Reports: Other (Patient was transferred to my care from officer at 7:00 this morning. The patient reportedly had been combative during the night and long for cement was called and the patient is now in a locked room. At 08 30 the patient was knocking on the door to get up and go to the bathroom. He is now awake, alert, and cooperative. Occasionally he is profane but is observed by me to be able to ambulate out assistance and do his own health care) - History of Present Illness Onset Date: 06/30/19 Duration: Chronic Past Medical History - History Comment History Comment: Patient states he has had multiple treatments for alcoholism including a stay at [facility]. The patient states he now has no interest in going to treatment or detox. He is requesting a short course of Ativan to help him with shakes from withdrawal. Social & Family History - Alcohol Use Alcohol Use Frequency: Daily (Patient admits to alcoholism and heavy alcohol use ) ED ROS GENERAL - Review of Systems Constitutional: Denies: Fever, Weakness HEENT: Reports: No Symptoms Respiratory: Denies: Shortness of Breath Cardiovascular: Denies: Chest Pain Endocrine: Reports: High Glucose (Finger stick blood glucose this morning is 131 ) GI/Abdominal: Denies: Abdominal Pain ED EXAM, BEHAVIORAL HEALTH - Physical Exam Exam Limited By: Combative/Threatening (Combative and threatening last night. Staff last night felt it necessary to call law enforcement. This morning the patient is cooperative and almost pleasant) Nose: No: Nasal Drainage Extremities: Normal Inspection, Normal Range of Motion Neurological: Alert, Normal Gait Psychiatric: Alert Skin Exam: No: Ecchymosis, Jaundice COURSE, BEHAVIORAL HEALTH COMP - Course Re-Assessment/Re-Exam Time: 09:00 Discharge vs Psych Eval/Treatment:: 07/01/19 08:52 Patient this morning refuses transfer for detox or treatment. He wants to go home and states he will be safe at home although he admits his brother is present and the 2 of them do heavy drinking together. Departure - Departure Time of Disposition: 09:00 Condition: Good Sepsis Event Note - Focused Exam Date Exam was Performed: 07/01/19 Time Exam was Performed: 08:46
[2019-07-01] MEDS ORDERED: Nicotine 21 MG/24 Hr Patch TRDERM ONE (04:23)
[2019-07-01] MEDS ORDERED: LORazepam 1 MG Tab PO ONE (08:44)
== END 2019-07-01 10:52 | disposition home or self-care (01) ==
LOC: JP.ED 03:52
DX: F10.129 Alcohol abuse with intoxication, unspecified (principal); E11.9 Type 2 diabetes mellitus without complications; F17.200 Nicotine dependence, unspecified, uncomplicated; Y90.8 Blood alcohol level of 240 mg/100 ml or more; Z88.5 Allergy status to narcotic agent; Z91.048 Other nonmedicinal substance allergy status; Z79.899 Other long term (current) drug therapy; Z79.82 Long term (current) use of aspirin; Z79.4 Long term (current) use of insulin
CPT/HCPCS: 36415; 80053; 80305; 80307; 81001; 82962; 85025; 96372; 99283; 99284; A9270; J2060

== ENCOUNTER 2019-11-04 21:28 | Emergency (ER) | payer MEDICARE, MEDICAID ==
--- NOTE | 2019-11-04 22:32 | EDM.PDOCBH ---
<OfficerOniel - Last Filed: 11/05/19 06:36> ED HPI GENERAL MEDICAL PROBLEM - General Chief Complaint: Behavioral/Psych Stated Complaint: MEDICAL [facility] Time Seen by Provider: 11/04/19 21:40 Source of Information: Reports: Patient, RN Notes Reviewed History Limitations: Reports: No Limitations - History of Present Illness INITIAL COMMENTS - FREE TEXT/NARRATIVE: 49-year-old gentleman presents emergency department day complaint of suicidal ideation, he states he he lives alone since he has had isolation he has been having troubles with thoughts of harming himself by hanging, he does use alcohol daily last drank a pint of vodka today has had problems with alcohol abuse in the past denies pain Pain Score (Numeric/FACES): 0 - Related Data Allergies Allergy/AdvReac Type Severity Reaction Status Date / Time acetaminophen [From Vicodin] Allergy Cannot Verified 11/04/19 21:51 Remember hydrocodone [From Vicodin] Allergy Cannot Verified 11/04/19 21:51 Remember nickel Allergy Rash Verified 11/04/19 21:51 trazodone Allergy Priapism Verified 11/04/19 21:51 Home Meds: Home Meds Acetaminophen 500 mg PO ASDIRECTED PRN 07/02/16 [History] Aspirin [Santos Chewable Aspirin] 81 mg PO DAILY 07/02/16 [History] FLUoxetine [PROzac] 80 mg PO DAILY 07/02/16 [History] Insulin Aspart [NovoLOG] 6 unit SQ TIDMEALS 07/02/16 [History] Multivitamin [One Daily Multivitamin] 1 each PO DAILY 07/02/16 [History] atorvaSTATin Calcium [Atorvastatin Calcium] 20 mg PO BEDTIME 07/02/16 [History] Gabapentin [Neurontin] 200 mg PO BID 03/13/18 [History] hydrOXYzine pamoate [Hydroxyzine Pamoate] 50 mg PO TID PRN 03/13/18 [History] Insulin Glarg,Human.Rec.Analog [Lantus Solostar] 15 unit SQ BID 12/13/18 [History] polyethylene glycoL 3350 [Miralax] 17 gm PO DAILY PRN 12/13/18 [History] Ibuprofen 400 mg PO ASDIRECTED PRN 11/04/19 [History] Past Medical History Cardiovascular History: Reports: Other (See Below) Other Cardiovascular History: Valve problems. Psychiatric History: Reports: Addiction, Depression, Suicidal Ideation Endocrine/Metabolic History: Reports: Diabetes, Type II - Infectious Disease History Infectious Disease History: Reports: Chicken Pox - Past Surgical History HEENT Surgical History: Reports: Tonsillectomy Dermatological Surgical History: Reports: Other (See Below) Social & Family History - Family History Family Medical History: Unobtainable - Tobacco Use Smoking Status *Q: Current Every Day Smoker Years of Tobacco use: 35 Packs/Tins Daily: 0.5 - Caffeine Use Caffeine Use: Reports: Coffee - Recreational Drug Use Recreational Drug Use: Yes Drug Use in Last 12 Months: Yes Recreational Drug Type: Reports: Cocaine, Marijuana/Hashish, Methamphetamine ED ROS GENERAL - Review of Systems Review Of Systems: See Below Constitutional: Reports: No Symptoms HEENT: Reports: No Symptoms Respiratory: Reports: No Symptoms Cardiovascular: Reports: No Symptoms Endocrine: Reports: High Glucose GI/Abdominal: Reports: No Symptoms : Reports: No Symptoms Musculoskeletal: Reports: No Symptoms Skin: Reports: No Symptoms Psychiatric: Reports: Suicidal Ideation. Denies: Hallucinations, Homicidal Ideation ED EXAM, BEHAVIORAL HEALTH - Physical Exam Exam: See Below Exam Limited By: No Limitations General Appearance: Alert, WD/WN, No Apparent Distress Respiratory/Chest: No Respiratory Distress, Lungs Clear, Normal Breath Sounds, No Accessory Muscle Use, Chest Non-Tender Cardiovascular: Regular Rate, Rhythm, No Murmur GI/Abdominal: Soft, Non-Tender Departure - Departure Disposition: DC/Tfer to Psych Hosp/Unit 65 Clinical Impression: Depression, Suicidal behavior, Alcohol abuse - Discharge Information Referrals: Reina Boles MD [Primary Care Provider] - Forms: ED Department Discharge Care Plan Goals: transfer to [facility] Sepsis Event Note (ED) - Evaluation Sepsis Screening Result: No Definite Risk <Lillian Fisher - Last Filed: 11/05/19 11:30> COURSE, BEHAVIORAL HEALTH COMP - Course Vital Signs: Last Vital Signs Temp 37.3 C 11/04/19 21:56 Pulse 94 11/04/19 21:56 Resp 16 11/04/19 21:56 BP 114/79 11/04/19 21:56 Pulse Ox 97 11/04/19 21:56 Orders, Labs, Meds: Active Orders 24 hr Category Date Time Status Suicide Precautions [OM.PC] Routine Oth 11/04/19 21:30 Ordered Laboratory Tests 11/04/19 11/04/19 11/04/19 Range/Units 22:32 22:37 22:37 WBC 8.5 (4.5-11.0) K/uL RBC 4.60 (4.30-5.90) M/uL Hgb 14.2 (12.0-15.0) g/dL Hct 41.4 (40.0-54.0) % MCV 90 (80-98) fL MCH 31 (27-31) pg MCHC 34 (32-36) % Plt Count 239 (150-400) K/uL Neut % (Auto) 59 (36-66) % Lymph % (Auto) 31 (24-44) % [place] % (Auto) 8 H (2-6) % Eos % (Auto) 2 (2-4) % Baso % (Auto) 1 (0-1) % Sodium 140 (140-148) mmol/L Potassium 4.0 (3.6-5.2) mmol/L Chloride 102 (100-108) mmol/L Carbon Dioxide 23 (21-32) mmol/L Anion Gap 15.5 H (5.0-14.0) mmol/L BUN 12 D (7-18) mg/dL Creatinine 1.2 (0.8-1.3) mg/dL Est Cr Clr Drug Dosing 70.46 mL/min Estimated GFR (MDRD) > 60 (>60) Glucose 146 H (74-106) mg/dL Calcium 9.5 D (8.5-10.1) mg/dL Total Bilirubin 0.4 (0.2-1.0) mg/dL AST 24 (15-37) U/L ALT 52 (12-78) U/L Alkaline Phosphatase 92 (46-116) U/L Total Protein 8.2 (6.4-8.2) g/dL Albumin 4.4 (3.4-5.0) g/dL Globulin 3.8 H (2.3-3.5) g/dL Albumin/Globulin Ratio 1.2 (1.2-2.2) TSH, Ultra Sensitive (0.358-3.740) uIU/mL Urine Opiates Screen Negative (NEGATIVE) Ur Oxycodone Screen Negative (NEGATIVE) Urine Methadone Screen Negative (NEGATIVE) Ur Propoxyphene Screen Negative (NEGATIVE) Ur Barbiturates Screen Negative (NEGATIVE) Ur Tricyclics Screen Negative (NEGATIVE) Ur Phencyclidine Scrn Negative (NEGATIVE) Ur Amphetamine Screen Negative (NEGATIVE) U Methamphetamines Scrn Negative (NEGATIVE) Urine MDMA Screen Negative (NEGATIVE) U Benzodiazepines Scrn Negative (NEGATIVE) U Cocaine Metab Screen Negative (NEGATIVE) U Marijuana (THC) Screen Negative (NEGATIVE) Ethyl Alcohol mg/dL 11/04/19 11/04/19 Range/Units 22:37 22:37 WBC (4.5-11.0) K/uL RBC (4.30-5.90) M/uL Hgb (12.0-15.0) g/dL Hct (40.0-54.0) % MCV (80-98) fL MCH (27-31) pg MCHC (32-36) % Plt Count (150-400) K/uL Neut % (Auto) (36-66) % Lymph % (Auto) (24-44) % [place] % (Auto) (2-6) % Eos % (Auto) (2-4) % Baso % (Auto) (0-1) % Sodium (140-148) mmol/L Potassium (3.6-5.2) mmol/L Chloride (100-108) mmol/L Carbon Dioxide (21-32) mmol/L Anion Gap (5.0-14.0) mmol/L BUN (7-18) mg/dL Creatinine (0.8-1.3) mg/dL Est Cr Clr Drug Dosing mL/min Estimated GFR (MDRD) (>60) Glucose (74-106) mg/dL Calcium (8.5-10.1) mg/dL Total Bilirubin (0.2-1.0) mg/dL AST (15-37) U/L ALT (12-78) U/L Alkaline Phosphatase (46-116) U/L Total Protein (6.4-8.2) g/dL Albumin (3.4-5.0) g/dL Globulin (2.3-3.5) g/dL Albumin/Globulin Ratio (1.2-2.2) TSH, Ultra Sensitive 2.308 (0.358-3.740) uIU/mL Urine Opiates Screen (NEGATIVE) Ur Oxycodone Screen (NEGATIVE) Urine Methadone Screen (NEGATIVE) Ur Propoxyphene Screen (NEGATIVE) Ur Barbiturates Screen (NEGATIVE) Ur Tricyclics Screen (NEGATIVE) Ur Phencyclidine Scrn (NEGATIVE) Ur Amphetamine Screen (NEGATIVE) U Methamphetamines Scrn (NEGATIVE) Urine MDMA Screen (NEGATIVE) U Benzodiazepines Scrn (NEGATIVE) U Cocaine Metab Screen (NEGATIVE) U Marijuana (THC) Screen (NEGATIVE) Ethyl Alcohol 27 mg/dL Medications Discontinued Medications Generic Name Dose Route Start Last Admin Trade Name Freq PRN Reason Stop Dose Admin Lorazepam 2 mg 11/04/19 23:30 11/04/19 23:36 Ativan PO 11/04/19 23:31 2 mg ONETIME ONE Administration Departure - Departure Time of Disposition: 11:29 Condition: Fair
[2019-11-04] MEDS ORDERED: LORazepam 1 MG Tab PO ONE (23:30)
[2019-11-05 12:36] VITALS: BP 108/76; PULSE 82
== END 2019-11-05 12:37 ==
LOC: JP.ED 21:28
DX: F32.9 Major depressive disorder, single episode, unspecified (principal); F10.10 Alcohol abuse, uncomplicated; E11.9 Type 2 diabetes mellitus without complications; F17.210 Nicotine dependence, cigarettes, uncomplicated; Z88.5 Allergy status to narcotic agent; Z91.048 Other nonmedicinal substance allergy status; Z88.8 Allergy status to other drugs, medicaments and biological substances; Z79.4 Long term (current) use of insulin; Z79.82 Long term (current) use of aspirin; Z79.899 Other long term (current) drug therapy; Y90.1 Blood alcohol level of 20-39 mg/100 ml
CPT/HCPCS: 36415; 80053; 80305; 80307; 84443; 85025; 99285; A9270

== ENCOUNTER 2019-11-22 11:08 | Emergency (ER) | payer MEDICARE, MEDICAID ==
[2019-11-22 11:15] VITALS: BP 129/87; PULSE 98
--- NOTE | 2019-11-22 11:32 | EDM.PDOC ---
<Haley Choi M - Last Filed: 11/22/19 11:55> ED HPI GENERAL MEDICAL PROBLEM - General Chief Complaint: Drug or Alcohol Abuse Stated Complaint: DRINKING FOR SEVERAL DAYS GOING TO [facility] Time Seen by Provider: 11/22/19 11:27 Source of Information: Reports: Patient, Old Records, RN, RN Notes Reviewed History Limitations: Reports: Altered Mental Status, Intoxication - History of Present Illness INITIAL COMMENTS - FREE TEXT/NARRATIVE: Pt here via EMS call from patient. "Pt states he is a binge drinker and drank a case of beer last night and 3 beers he had left this morning due to withdrawal symptoms". Pt is able to answer questions and provide some medical history. [facility] has a bed waiting. Needs medical clearance. Pt denies IV drug use but does admit to "sniffing gabbies". - Related Data Allergies Allergy/AdvReac Type Severity Reaction Status Date / Time acetaminophen [From Vicodin] Allergy Cannot Verified 11/04/19 21:51 Remember hydrocodone [From Vicodin] Allergy Cannot Verified 11/04/19 21:51 Remember nickel Allergy Rash Verified 11/04/19 21:51 trazodone Allergy Priapism Verified 11/04/19 21:51 Home Meds: Home Meds Acetaminophen 500 mg PO ASDIRECTED PRN 07/02/16 [History] Aspirin [Santos Chewable Aspirin] 81 mg PO DAILY 07/02/16 [History] FLUoxetine [PROzac] 80 mg PO DAILY 07/02/16 [History] Insulin Aspart [NovoLOG] 6 unit SQ TIDMEALS 07/02/16 [History] Multivitamin [One Daily Multivitamin] 1 each PO DAILY 07/02/16 [History] atorvaSTATin Calcium [Atorvastatin Calcium] 20 mg PO BEDTIME 07/02/16 [History] Gabapentin [Neurontin] 200 mg PO BID 03/13/18 [History] hydrOXYzine pamoate [Hydroxyzine Pamoate] 50 mg PO TID PRN 03/13/18 [History] Insulin Glarg,Human.Rec.Analog [Lantus Solostar] 15 unit SQ BID 12/13/18 [History] polyethylene glycoL 3350 [Miralax] 17 gm PO DAILY PRN 12/13/18 [History] Ibuprofen 400 mg PO ASDIRECTED PRN 09/19/20 [History] Past Medical History Cardiovascular History: Reports: Other (See Below) Other Cardiovascular History: Valve problems. Psychiatric History: Reports: Addiction, Depression, Suicidal Ideation Endocrine/Metabolic History: Reports: Diabetes, Type II - Infectious Disease History Infectious Disease History: Reports: Chicken Pox - Past Surgical History HEENT Surgical History: Reports: Tonsillectomy Dermatological Surgical History: Reports: Other (See Below) - History Comment History Comment: Patient states he has had multiple treatments for alcoholism including a stay at [facility]. The patient states he now has no interest in going to treatment or detox. He is requesting a short course of Ativan to help him with shakes from withdrawal. Social & Family History - Family History Family Medical History: Unobtainable - Tobacco Use Smoking Status *Q: Current Some Day Smoker Years of Tobacco use: 37 Packs/Tins Daily: 0.5 - Caffeine Use Caffeine Use: Reports: None - Alcohol Use Days Per Week of Alcohol Use: 2 Number of Drinks Per Day: 24 Total Drinks Per Week: 48 Date of Last Drink: 11/22/19 Time of Last Drink: 10:00 - Recreational Drug Use Recreational Drug Use: Yes Drug Use in Last 12 Months: Yes Recreational Drug Type: Reports: Marijuana/Hashish Recreational Drug Use Frequency: Socially ED ROS GENERAL - Review of Systems Review Of Systems: See Below Constitutional: Reports: No Symptoms HEENT: Reports: No Symptoms Respiratory: Reports: No Symptoms Cardiovascular: Reports: No Symptoms Endocrine: Reports: High Glucose (known diabetic) : Reports: No Symptoms Musculoskeletal: Reports: No Symptoms Skin: Reports: No Symptoms Neurological: Reports: Other (intoxicated ) Psychiatric: Reports: Anxiety, Cravings Hematologic/Lymphatic: Reports: No Symptoms Immunologic: Reports: No Symptoms - Physical Exam Exam: See Below Exam Limited By: Intoxication General Appearance: Alert, Anxious Throat/Mouth: Normal Inspection Head Exam: Normocephalic Neck: Normal Inspection Respiratory/Chest: No Respiratory Distress, Lungs Clear, Normal Breath Sounds, No Accessory Muscle Use Cardiovascular: Regular Rate, Rhythm GI/Abdominal: Normal Bowel Sounds (Male) Exam: Deferred Rectal (Males) Exam: Deferred Neuro Exam (Abbreviated): Alert, Inattentive (Intoxicated ) Psychiatric: Anxious Skin Exam: Warm, Dry Course - Re-Assessments/Exams Free Text/Narrative Re-Assessment/Exam: 11/22/19 11:55 All pt labs came back WNL. No acute processes. Pt will be transferred to [facility]. Call was placed for a ride. Departure - Departure Disposition: DC/Tfer to Other 70 Condition: Fair Clinical Impression: Alcohol abuse Alcohol withdrawal syndrome Qualifiers: Complication of substance-induced condition: uncomplicated Qualified Code(s): F10.230 - Alcohol dependence with withdrawal, uncomplicated - Discharge Information *PRESCRIPTION DRUG MONITORING PROGRAM REVIEWED*: Not Applicable *COPY OF PRESCRIPTION DRUG MONITORING REPORT IN PATIENT SKYLA: Not Applicable Instructions: Alcohol Abuse and Dependence Information, Adult, Alcohol Intoxication, [id number] Referrals: PCP,None [Primary Care Provider] - Forms: ED Department Discharge Additional Instructions: You will be transferred to [facility] for further care for alcohol abuse per your request. Sepsis Event Note (ED) - Evaluation Sepsis Screening Result: No Definite Risk - Problem List & Annotations (1) Alcohol withdrawal syndrome SNOMED Code(s): 410425739 Code(s): F10.239 - ALCOHOL DEPENDENCE WITH WITHDRAWAL, UNSPECIFIED Status: Acute Priority: High Current Visit: Yes Qualifiers: Complication of substance-induced condition: uncomplicated Qualified Code(s): F10.230 - Alcohol dependence with withdrawal, uncomplicated - Problem List Review Problem List Initiated/Reviewed/Updated: Yes - Assessment/Plan Plan: You will be transferred to [facility] for further care for alcohol abuse per your request. <OfficerOniel - Last Filed: 11/22/19 12:04> ED ROS GENERAL - Review of Systems Reason Not Obtained: agree with above - Physical Exam Text/Narrative:: agree with below Course - Vital Signs Last Recorded V/S: Last Vital Signs Temp 97.7 F 11/22/19 11:12 Pulse 98 11/22/19 11:12 Resp 16 11/22/19 11:12 BP 129/87 11/22/19 11:12 Pulse Ox 96 11/22/19 11:12 - Orders/Labs/Meds Orders: Active Orders 24 hr Category Date Time Status LORazepam [Ativan] Med 11/22/19 12:02 Once 2 mg IM ONETIME ONE Medication Orders Lorazepam (Ativan) 2 mg IM ONETIME ONE Stop: 11/22/19 12:03 Labs: Laboratory Tests 11/22/19 11/22/19 11/22/19 Range/Units 11:17 11:17 11:26 WBC 6.8 (4.5-11.0) K/uL RBC 4.25 L (4.30-5.90) M/uL Hgb 13.1 (12.0-15.0) g/dL Hct 38.5 L (40.0-54.0) % MCV 91 (80-98) fL MCH 31 (27-31) pg MCHC 34 (32-36) % Plt Count 291 (150-400) K/uL Neut % (Auto) 50 (36-66) % Lymph % (Auto) 38 (24-44) % [place] % (Auto) 10 H (2-6) % Eos % (Auto) 2 (2-4) % Baso % (Auto) 0 (0-1) % Sodium (140-148) mmol/L Potassium (3.6-5.2) mmol/L Chloride (100-108) mmol/L Carbon Dioxide (21-32) mmol/L Anion Gap (5.0-14.0) mmol/L BUN (7-18) mg/dL Creatinine (0.8-1.3) mg/dL Est Cr Clr Drug Dosing mL/min Estimated GFR (MDRD) (>60) Glucose (74-106) mg/dL Calcium (8.5-10.1) mg/dL Total Bilirubin (0.2-1.0) mg/dL AST (15-37) U/L ALT (12-78) U/L Alkaline Phosphatase (46-116) U/L Total Protein (6.4-8.2) g/dL Albumin (3.4-5.0) g/dL Globulin (2.3-3.5) g/dL Albumin/Globulin Ratio (1.2-2.2) Urine Color Yellow (YELLOW) Urine Appearance Clear (CLEAR) Urine pH 7.0 (5.0-8.0) Ur Specific [place] 1.010 (1.008-1.030) Urine Protein Negative (NEGATIVE) mg/dL Urine Glucose (UA) 100 H (NEGATIVE) mg/dL Urine Ketones Negative (NEGATIVE) mg/dL Urine Occult Blood Negative (NEGATIVE) Urine Nitrite Negative (NEGATIVE) Urine Bilirubin Negative (NEGATIVE) Urine Urobilinogen 0.2 (0.2-1.0) EU/dL Ur Leukocyte Esterase Negative (NEGATIVE) Urine RBC Not seen (0-5) Urine WBC Not seen (0-5) Ur Epithelial Cells Not seen Amorphous Sediment Not seen Urine Bacteria Not seen Urine Mucus Not seen Urine Opiates Screen Negative (NEGATIVE) Ur Oxycodone Screen Negative (NEGATIVE) Urine Methadone Screen Negative (NEGATIVE) Ur Propoxyphene Screen Negative (NEGATIVE) Ur Barbiturates Screen Negative (NEGATIVE) Ur Tricyclics Screen Negative (NEGATIVE) Ur Phencyclidine Scrn Negative (NEGATIVE) Ur Amphetamine Screen Negative (NEGATIVE) U Methamphetamines Scrn Negative (NEGATIVE) Urine MDMA Screen Negative (NEGATIVE) U Benzodiazepines Scrn Negative (NEGATIVE) U Cocaine Metab Screen Negative (NEGATIVE) U Marijuana (THC) Screen Negative (NEGATIVE) Ethyl Alcohol mg/dL 11/22/19 11/22/19 Range/Units 11:26 11:26 WBC (4.5-11.0) K/uL RBC (4.30-5.90) M/uL Hgb (12.0-15.0) g/dL Hct (40.0-54.0) % MCV (80-98) fL MCH (27-31) pg MCHC (32-36) % Plt Count (150-400) K/uL Neut % (Auto) (36-66) % Lymph % (Auto) (24-44) % [place] % (Auto) (2-6) % Eos % (Auto) (2-4) % Baso % (Auto) (0-1) % Sodium 142 (140-148) mmol/L Potassium 3.4 L (3.6-5.2) mmol/L Chloride 102 (100-108) mmol/L Carbon Dioxide 32 (21-32) mmol/L Anion Gap 11.4 (5.0-14.0) mmol/L BUN 5 L D (7-18) mg/dL Creatinine 1.0 (0.8-1.3) mg/dL Est Cr Clr Drug Dosing 84.55 mL/min Estimated GFR (MDRD) > 60 (>60) Glucose 76 (74-106) mg/dL Calcium 8.7 (8.5-10.1) mg/dL Total Bilirubin 0.3 (0.2-1.0) mg/dL AST 26 (15-37) U/L ALT 30 (12-78) U/L Alkaline Phosphatase 84 (46-116) U/L Total Protein 7.4 (6.4-8.2) g/dL Albumin 3.8 (3.4-5.0) g/dL Globulin 3.6 H (2.3-3.5) g/dL Albumin/Globulin Ratio 1.1 L (1.2-2.2) Urine Color (YELLOW) Urine Appearance (CLEAR) Urine pH (5.0-8.0) Ur Specific [place] (1.008-1.030) Urine Protein (NEGATIVE) mg/dL Urine Glucose (UA) (NEGATIVE) mg/dL Urine Ketones (NEGATIVE) mg/dL Urine Occult Blood (NEGATIVE) Urine Nitrite (NEGATIVE) Urine Bilirubin (NEGATIVE) Urine Urobilinogen (0.2-1.0) EU/dL Ur Leukocyte Esterase (NEGATIVE) Urine RBC (0-5) Urine WBC (0-5) Ur Epithelial Cells Amorphous Sediment Urine Bacteria Urine Mucus Urine Opiates Screen (NEGATIVE) Ur Oxycodone Screen (NEGATIVE) Urine Methadone Screen (NEGATIVE) Ur Propoxyphene Screen (NEGATIVE) Ur Barbiturates Screen (NEGATIVE) Ur Tricyclics Screen (NEGATIVE) Ur Phencyclidine Scrn (NEGATIVE) Ur Amphetamine Screen (NEGATIVE) U Methamphetamines Scrn (NEGATIVE) Urine MDMA Screen (NEGATIVE) U Benzodiazepines Scrn (NEGATIVE) U Cocaine Metab Screen (NEGATIVE) U Marijuana (THC) Screen (NEGATIVE) Ethyl Alcohol 208 mg/dL Meds: Medications Generic Name Dose Route Start Last Admin Trade Name Freq PRN Reason Stop Dose Admin Lorazepam 2 mg 11/22/19 12:02 Ativan IM 11/22/19 12:03 ONETIME ONE Departure - Departure Time of Disposition: 12:04 Sepsis Event Note (ED) - Focused Exam Vital Signs: Vital Signs Temp Pulse Resp BP Pulse Ox 11/22/19 11:12 97.7 F 98 16 129/87 96 - My Orders Last 24 Hours: My Active Orders 11/22/19 12:02 LORazepam [Ativan] 2 mg IM ONETIME ONE - Assessment/Plan Last 24 Hours: My Active Orders 11/22/19 12:02 LORazepam [Ativan] 2 mg IM ONETIME ONE Plan: Assessment Acuity = acute Site and laterality = alcohol abuse and intoxication Etiology = EtOH Manifestations = none Location of injury = Home Lab values = CBC, CMP, urinalysis unremarkable urine drug screen is negative alcohol is at 280 Plan He will be transferred to [facility] facility for further treatment Oniel Barajas MD was personally available for consultation in the ED. I have reviewed the chart and agree with the documentation as recorded by the GEAR TESTER Student, including the assessment, treatment plan and disposition. Oniel Barajas MD personally saw and examined the patient. I have reviewed and agree with the GEAR TESTER Student's findings. This note was dictated using Rapid Vocabulary voice recognition software please call with any questions on syntax or grammar.
[2019-11-22] MEDS ORDERED: LORazepam 2 MG/ML SDV IM ONE (12:02)
== END 2019-11-22 14:00 | disposition other institution (70) ==
LOC: JP.ED 11:08
DX: F10.230 Alcohol dependence with withdrawal, uncomplicated (principal); F32.9 Major depressive disorder, single episode, unspecified; E11.9 Type 2 diabetes mellitus without complications; F17.210 Nicotine dependence, cigarettes, uncomplicated; Y90.7 Blood alcohol level of 200-239 mg/100 ml; Z79.4 Long term (current) use of insulin; Z79.899 Other long term (current) drug therapy; Z88.6 Allergy status to analgesic agent; Z91.048 Other nonmedicinal substance allergy status; Z79.82 Long term (current) use of aspirin; Z88.5 Allergy status to narcotic agent
CPT/HCPCS: 36415; 80053; 80305; 80307; 81001; 85025; 96372; 99285; J2060; 99284

== ENCOUNTER 2020-03-31 16:55 | Emergency (ER) | payer MEDICARE, MEDICAID ==
[2020-03-31 17:23] VITALS: BP 130/76; PULSE 113
--- NOTE | 2020-03-31 17:54 | EDM.PDOCBH ---
<Robre Hansen - Last Filed: 03/31/20 19:44> ED HPI GENERAL MEDICAL PROBLEM - General Chief Complaint: Drug or Alcohol Abuse Stated Complaint: [facility] Time Seen by Provider: 03/31/20 17:28 - Related Data Allergies Allergy/AdvReac Type Severity Reaction Status Date / Time acetaminophen [From Vicodin] Allergy Cannot Verified 03/31/20 16:57 Remember hydrocodone [From Vicodin] Allergy Cannot Verified 03/31/20 16:57 Remember nickel Allergy Rash Verified 03/31/20 16:57 trazodone Allergy Priapism Verified 03/31/20 16:57 Home Meds: Home Meds Acetaminophen 500 mg PO ASDIRECTED PRN 07/02/16 [History] Aspirin [Santos Chewable Aspirin] 81 mg PO DAILY 07/02/16 [History] FLUoxetine [PROzac] 80 mg PO DAILY 07/02/16 [History] Insulin Aspart [NovoLOG] 6 unit SQ TIDMEALS 07/02/16 [History] Multivitamin [One Daily Multivitamin] 1 each PO DAILY 07/02/16 [History] atorvaSTATin Calcium [Atorvastatin Calcium] 20 mg PO BEDTIME 07/02/16 [History] Gabapentin [Neurontin] 200 mg PO BID 03/13/18 [History] hydrOXYzine pamoate [Hydroxyzine Pamoate] 50 mg PO TID PRN 03/13/18 [History] Insulin Glarg,Human.Rec.Analog [Lantus Solostar] 15 unit SQ BID 12/13/18 [History] polyethylene glycoL 3350 [Miralax] 17 gm PO DAILY PRN 12/13/18 [History] Ibuprofen 400 mg PO ASDIRECTED PRN 11/04/19 [History] COURSE, BEHAVIORAL HEALTH COMP - Course Orders, Labs, Meds: Patient care turned over from Dr. Wasserman pending ride to [place], however the patient changed his mind and had his brother come and pick him up. He was stable on discharge. Departure - Departure Time of Disposition: 18:25 Disposition: Home, Self-Care 01 Clinical Impression: Alcohol abuse - Discharge Information Instructions: Alcohol Use Disorder Referrals: PCP,None [Primary Care Provider] - Forms: ED Department Discharge Care Plan Goals: Take your medicines only as prescribed and avoid alcohol abuse in the future. <Roger Ruiz - Last Filed: 04/01/20 18:03> ED HPI GENERAL MEDICAL PROBLEM - General Source of Information: Reports: Patient, EMS History Limitations: Reports: No Limitations - History of Present Illness INITIAL COMMENTS - FREE TEXT/NARRATIVE: Yoshi is a 49-year-old male presenting by EMS for evaluation of mental health and alcohol intoxication. Patient reportedly was complaining of suicide ideation prompting EMS to bring him in. Upon arrival here he denies any suicide ideation but states that his life is "shit" because he continues to drink and cannot get his life together. The patient reportedly is been drinking a case of beer and half 1/5 of Smirnoff each day over the last 3 days. Today was reported to have a alcohol level of 307 by EMS. The patient does have a history significant for diabetes. He recently had an encounter with his primary provider who is no longer will prescribe him gabapentin because he has been abusing it by snorting it. He also has a very long standing history of alcoholism requiring several admissions to [facility]. He denies any suicide ideation, homicide ideation, or self-harm to both myself and the nurse. He is requesting Ativan 2 mg to help him with withdrawal, however, he still intoxicated. I did inform him that we would follow the [facility] protocol if required. Past Medical History Cardiovascular History: Reports: Other (See Below) Other Cardiovascular History: Valve problems. Psychiatric History: Reports: Addiction, Depression, Suicidal Ideation Endocrine/Metabolic History: Reports: Diabetes, Type II - Infectious Disease History Infectious Disease History: Reports: Chicken Pox - Past Surgical History HEENT Surgical History: Reports: Tonsillectomy Dermatological Surgical History: Reports: Other (See Below) - History Comment History Comment: Patient states he has had multiple treatments for alcoholism including a stay at [facility]. The patient states he now has no interest in going to treatment or detox. He is requesting a short course of Ativan to help him with shakes from withdrawal. Social & Family History - Family History Family Medical History: Unobtainable - Tobacco Use Tobacco Use Status *Q: Current Every Day Tobacco User Years of Tobacco use: 30 Packs/Tins Daily: 0.5 - Caffeine Use Caffeine Use: Reports: None ED ROS GENERAL - Review of Systems Review Of Systems: See Below Constitutional: Reports: Other (Alcohol intoxication) HEENT: Reports: No Symptoms Respiratory: Reports: No Symptoms Cardiovascular: Reports: No Symptoms Endocrine: Reports: No Symptoms GI/Abdominal: Reports: No Symptoms : Reports: No Symptoms Musculoskeletal: Reports: No Symptoms Skin: Reports: No Symptoms Neurological: Reports: No Symptoms Psychiatric: Reports: Depression, Other (Alcohol abuse with acute intoxication). Denies: Homicidal Ideation, Suicidal Ideation Hematologic/Lymphatic: Reports: No Symptoms Immunologic: Reports: No Symptoms ED EXAM, BEHAVIORAL HEALTH - Physical Exam Exam: See Below Exam Limited By: No Limitations General Appearance: Alert, No Apparent Distress, Anxious Eye Exam: Bilateral Eye: EOMI, PERRL Throat/Mouth: Normal Inspection, Normal Lips, Normal Oropharynx, Normal Voice Head: Atraumatic Neck: Normal Inspection, Non-Tender Respiratory/Chest: No Respiratory Distress, Lungs Clear, Normal Breath Sounds Cardiovascular: Normal Peripheral Pulses, Regular Rate, Rhythm GI/Abdominal: Normal Bowel Sounds, Soft, Non-Tender Extremities: Normal Inspection, Normal Range of Motion Neurological: Alert, Normal Mood/Affect, Normal Cognition, No Motor/Sensory Deficits Psychiatric: Alert, Normal Affect, Normal Cognition, Oriented, Depressed Mood. No: Restless, Disoriented, Suicidal Thoughts, Auditory Hallucinations, Visual Hallucinations, Pressured Speech Skin Exam: Warm, Dry, Intact, Normal color COURSE, BEHAVIORAL HEALTH COMP - Course Vital Signs: Last Vital Signs Temp 36.2 C 03/31/20 17:06 Pulse 113 H 03/31/20 17:06 Resp 14 03/31/20 17:06 BP 130/76 03/31/20 17:06 Pulse Ox 98 03/31/20 17:06 Orders, Labs, Meds: Laboratory Tests 03/31/20 03/31/20 Range/Units 17:14 17:56 Urine Color Yellow (YELLOW) Urine Appearance Clear (CLEAR) Urine pH 5.5 (5.0-8.0) Ur Specific Perry 1.010 (1.008-1.030) Urine Protein Negative (NEGATIVE) mg/dL Urine Glucose (UA) 500 H (NEGATIVE) mg/dL Urine Ketones 40 H (NEGATIVE) mg/dL Urine Occult Blood Negative (NEGATIVE) Urine Nitrite Negative (NEGATIVE) Urine Bilirubin Negative (NEGATIVE) Urine Urobilinogen 0.2 (0.2-1.0) EU/dL Ur Leukocyte Esterase Negative (NEGATIVE) Urine RBC Not seen (0-5) Urine WBC Not seen (0-5) Ur Epithelial Cells Rare Amorphous Sediment Rare Urine Bacteria Not seen Urine Mucus Not seen Urine Opiates Screen Negative (NEGATIVE) Ur Oxycodone Screen Negative (NEGATIVE) Urine Methadone Screen Negative (NEGATIVE) Ur Propoxyphene Screen Negative (NEGATIVE) Ur Barbiturates Screen Negative (NEGATIVE) Ur Tricyclics Screen Negative (NEGATIVE) Ur Phencyclidine Scrn Negative (NEGATIVE) Ur Amphetamine Screen Negative (NEGATIVE) U Methamphetamines Scrn Negative (NEGATIVE) Urine MDMA Screen Negative (NEGATIVE) U Benzodiazepines Scrn Negative (NEGATIVE) U Cocaine Metab Screen Negative (NEGATIVE) U Marijuana (THC) Screen Negative (NEGATIVE) Discharge vs Psych Eval/Treatment:: 03/31/20 18:00 the patient is elected not to go to [place] [place] but instead have his brother come pick him up. The patient is very agitated that we will not give him Ativan 2 mg. The patient is currently intoxicated at a alcohol of 307 and it would be contraindicated to give him any benzodiazepines as he is not withdrawing at this time. He scores very low on the CIWA protocol and based on that would not require benzodiazepines for management of withdrawal. The patient's brother arrived to the ED and assumed care of the patient and the patient was discharged without further incident. Sepsis Event Note (ED) - Evaluation Sepsis Screening Result: No Definite Risk
== END 2020-03-31 18:25 | disposition home or self-care (01) ==
LOC: JP.ED 16:55
DX: F10.229 Alcohol dependence with intoxication, unspecified (principal); Y90.8 Blood alcohol level of 240 mg/100 ml or more; E11.9 Type 2 diabetes mellitus without complications; Z88.6 Allergy status to analgesic agent; Z88.5 Allergy status to narcotic agent; Z91.048 Other nonmedicinal substance allergy status; Z79.82 Long term (current) use of aspirin; Z79.4 Long term (current) use of insulin; Z79.899 Other long term (current) drug therapy; Z72.0 Tobacco use
CPT/HCPCS: 80305-QW; 81001; 99283; 99284

== ENCOUNTER 2021-06-16 04:46 | Emergency (ER) | payer MEDICARE, MEDICAID ==
[2021-06-16 05:21] VITALS: BP 129/70; PULSE 113
[2021-06-16] MEDS ORDERED: Promethazine 25 MG Tab PO ONE (05:42)
== END 2021-06-16 13:25 | disposition home or self-care (01) ==
LOC: JP.ED 04:46
DX: F10.230 Alcohol dependence with withdrawal, uncomplicated (principal); E11.65 Type 2 diabetes mellitus with hyperglycemia; F33.9 Major depressive disorder, recurrent, unspecified; R45.851 Suicidal ideations; Z79.4 Long term (current) use of insulin; Z79.82 Long term (current) use of aspirin; Z72.0 Tobacco use; Z79.899 Other long term (current) drug therapy
CPT/HCPCS: 36415; 80053; 80307; 83690; 85025; 99285; A9270; 99282

== ENCOUNTER 2021-08-20 20:31 | Emergency (ER) | payer MEDICARE, MEDICAID ==
[2021-08-20] MEDS ORDERED: LORazepam 2 MG/ML SDV IM STA (20:37)
[2021-08-20 21:14] LABS: ESTIMATED GFR 52 mL/min (>60)
[2021-08-20] MEDS ORDERED: OLANZapine 5 MG Tab PO STA (22:43)
[2021-08-21 12:39] VITALS: BP 130/88; PULSE 80
== END 2021-08-21 13:42 ==
LOC: JP.ED 20:31 → MERGE 20:31 → EDBD 20:31 → JP.ED 08-21 13:42
DX: F33.3 Major depressive disorder, recurrent, severe with psychotic symptoms (principal); F60.9 Personality disorder, unspecified; F10.11 Alcohol abuse, in remission; F12.90 Cannabis use, unspecified, uncomplicated; Z88.8 Allergy status to other drugs, medicaments and biological substances; Z88.5 Allergy status to narcotic agent; Z91.048 Other nonmedicinal substance allergy status; Z79.82 Long term (current) use of aspirin; Z79.4 Long term (current) use of insulin; Z79.899 Other long term (current) drug therapy; Z20.822 Contact with and (suspected) exposure to COVID-19; Y90.0 Blood alcohol level of less than 20 mg/100 ml
CPT/HCPCS: 36415; 80053; 80143; 80179; 80305; 80307; 81001; 85025; 96372; 99285; A9270; J2060; U0002

== ENCOUNTER 2022-12-19 22:35 | Emergency (ER) | payer MEDICARE, MEDICAID ==
[2022-12-20] MEDS ORDERED: diphenhydrAMINE 50 MG/ML SDV IM ONE (00:45)
[2022-12-20] MEDS ORDERED: LORazepam 2 MG/ML SDV IM ONE (00:45)
[2022-12-20] MEDS ORDERED: Haloperidol 5 MG Tab PO ONE (00:49)
[2022-12-20] MEDS ORDERED: diphenhydrAMINE 25 MG Cap PO PRN (00:49)
[2022-12-20] MEDS ORDERED: LORazepam 1 MG Tab PO ONE ×2 (00:49→15:12)
[2022-12-20 02:10] LABS: CALCIUM 8.4 mg/dL (8.5-10.1); EST CRCL DRUG DOSING (CG) 81.7 mL/min; POTASSIUM,K 3.8 mmol/L (3.6-5.2)
[2022-12-20 02:12] LABS: ANION GAP 10.8 mmol/L (5.0-14.0)
[2022-12-20 02:52] LABS: AMPHETAMINES SCREEN, URINE NEGATIVE (NEGATIVE); BARBITURATE SCREEN,URINE NEGATIVE (NEGATIVE); BENZODIAZEPINES SCREEN,URINE NEGATIVE (NEGATIVE); METHADONE SCREEN, URINE NEGATIVE (NEGATIVE); METHAMPHETAMINES SCREEN, URINE NEGATIVE (NEGATIVE); OXYCODONE SCREEN,URINE NEGATIVE (NEGATIVE)
[2022-12-20 02:53] LABS: PROPOXYPHENE SCREEN,URINE NEGATIVE (NEGATIVE); THC SCREEN,URINE 50 NG/ML PRESUMPTIVE POSITIVE (NEGATIVE)
[2022-12-20] MEDS ORDERED: 50% Dextrose in Water 50 ML Syringe IVPUSH PRN ×3 (09:20→12:06)
[2022-12-20] MEDS ORDERED: Glucagon,Human Recombinant 1 MG Vial IM PRN ×4 (09:20→12:10)
[2022-12-20] MEDS ORDERED: Insulin Glargine,Human Rec. Analog 100 Units/ML 3 ML Pen SUBCUT SCH (09:30)
[2022-12-20] MEDS ORDERED: Insulin Regular, Human 100 Units/ML 3 ML Vial SUBCUT ONE (10:39)
[2022-12-20] MEDS ORDERED: Insulin Lispro 100 Unit/ML 3 ML KwikPen SUBCUT ONE ×2 (10:45→12:06)
[2022-12-20 13:02] LABS: HEMATOCRIT 35.3 % (38.4-49.7); HEMOGLOBIN 12.4 g/dL (12.9-16.9); MEAN CORPUSCULAR HEMOGLOBIN 32.1 pg (31.6-35.5); MEAN CORPUSCULAR HGB CONC 35.1 g/dL (31.6-35.5); MEAN CORPUSCULAR VOLUME 91.5 fL (81.4-99.0); RED BLOOD CELL COUNT 3.86 M/uL (4.14-5.76)
[2022-12-20 14:42] VITALS: BP 121/80; PULSE 72
[2022-12-20] MEDS ORDERED: Insulin Lispro 100 Unit/ML 3 ML KwikPen SUBCUT SCH (17:00)
== END 2022-12-20 15:40 | disposition other institution (70) ==
LOC: JP.ED 22:35
DX: F32.A Depression, unspecified (principal); I10 Essential (primary) hypertension; E11.9 Type 2 diabetes mellitus without complications; Z79.4 Long term (current) use of insulin; Z79.899 Other long term (current) drug therapy; Z88.5 Allergy status to narcotic agent; Z91.048 Other nonmedicinal substance allergy status; Z20.822 Contact with and (suspected) exposure to COVID-19
CPT/HCPCS: 36415; 80048; 80143; 80179; 80305; 80307; 84443; 85027; 99285; A9270; J1815; U0002